=== PATIENT | male | born 1960 | race Two or more races ===

== ENCOUNTER 2018-04-10 07:36 | Emergency (ER) | payer MEDICAID ==
[~2018-04-10] VITALS: Ht 172.7 cm; Wt 111.1 kg
[2018-04-10 07:58] VITALS: BP 124/58
[2018-04-10] MEDS ORDERED: ALBUTEROL SULF 2.5 MG/0.5ML(0.5%) NEB SOLN NEB ONE (08:00)
[2018-04-10] MEDS ORDERED: IPRATROPIUM BROM 0.5 MG/2.5ML INH SOL NEB ONE (08:00)
[2018-04-10] MEDS ORDERED: SODIUM CHLORIDE 0.9% 1,000 ML IV ONE (08:38)
[2018-04-10] MEDS ORDERED: methylPREDNISolone SOD SUCC 125 MG/2 ML VL IV ONE (08:45)
[2018-04-10] MEDS ORDERED: AZITHROMYCIN 500MG/ 250ML 250 ML IV ONE (08:45)
[2018-04-10 09:05] LABS: Basophils # (auto) 0 uL; Basophils % (auto) 0.7 % (0.0-2.0); Eosinophils # (auto) 0.2 uL; Eosinophils % (auto) 3.3 % (0.0-7.0); Hemoglobin 13.6 g/dL (13.5-17.5); Lymphocytes % (auto) 16.6 % (10.0-50.0); Mean Corpuscular Hemoglobin 27.6 pg (28.0-32.0); Mean Corpuscular Hgb Conc. 33.1 g/dL (32.0-36.0); Mean Corpuscular Volume 83.4 fL (80.0-100.0); Monocytes # (auto) 0.4 uL; Monocytes % (auto) 6.4 % (0.0-12.0); Neutrophils # (auto) 4.3 uL; Platelet Count (auto) 248 10^3/uL (140-450); Red Blood Cells 4.92 10^6/uL (4.5-5.90); Red Cell Distribution Width 14.4 % (11.8-14.3); White Blood Cell 5.9 10^3/uL (4.4-10.8)
[2018-04-10 09:21] LABS: Albumin 3.1 g/dL (3.4-5.0); BUN/Creatinine Ratio 10.3; Calcium 8.6 mg/dL (8.5-10.1); Magnesium 2.1 mg/dL (1.6-2.6); Potassium 3.8 mmol/L (3.5-5.1)
[2018-04-10 09:24] LABS: Bilirubin, Total 0.3 mg/dL (0.2-1.0); Total Protein 6.3 g/dL (6.4-8.2)
== END 2018-04-10 10:31 | disposition home or self-care (01) ==
LOC: ER 07:36
DX: J45.901 Unspecified asthma with (acute) exacerbation (principal); E11.65 Type 2 diabetes mellitus with hyperglycemia; E44.1 Mild protein-calorie malnutrition; E78.5 Hyperlipidemia, unspecified; Z68.37 Body mass index [BMI] 37.0-37.9, adult
CPT/HCPCS: 36415; 71046; 80053; 83735; 84443; 85025; 93005; 94640; 94761; 96365; 96375; 99284; J0456; J2930; J7030; J7611; J7644

== ENCOUNTER 2019-05-13 17:40 | Emergency (ER) | payer MEDICAID ==
[~2019-05-13] VITALS: Ht 177.8 cm; Wt 97.5 kg
[2019-05-13] MEDS ORDERED: IPRATROPIUM BROM 0.5 MG/2.5ML INH SOL NEB ONE (18:15)
[2019-05-13] MEDS ORDERED: ALBUTEROL SULF 2.5 MG/0.5ML(0.5%) NEB SOLN NEB ONE (18:15)
[2019-05-13 18:27] LABS: Basophils # (auto) 0 uL; Basophils % (auto) 0.2 % (0.0-2.0); Eosinophils # (auto) 0 uL; Eosinophils % (auto) 0.1 % (0.0-7.0); Hematocrit 32.9 % (41.0-53.0); Hemoglobin 10.7 g/dL (13.5-17.5); Lymphocytes # (auto) 0.3 uL; Lymphocytes % (auto) 4.3 % (10.0-50.0); Mean Corpuscular Hemoglobin 27.4 pg (28.0-32.0); Mean Corpuscular Hgb Conc. 32.7 g/dL (32.0-36.0); Mean Corpuscular Volume 83.8 fL (80.0-100.0); Monocytes # (auto) 0.2 uL; Monocytes % (auto) 3.2 % (0.0-12.0); Neutrophils # (auto) 6.5 uL; Neutrophils % (auto) 92.2 % (37.0-80.0); Platelet Count (auto) 223 10^3/uL (140-450); Red Blood Cells 3.92 10^6/uL (4.5-5.90); Red Cell Distribution Width 13.9 % (11.8-14.3); White Blood Cell 7.1 10^3/uL (4.4-10.8)
[2019-05-13 18:42] LABS: Albumin 3.3 g/dL (3.4-5.0); Anion Gap 7 (5-15); Blood Urea Nitrogen 20 mg/dL (7-18); Calcium 8.1 mg/dL (8.5-10.1); Carbon Dioxide 24 mmol/L (21-32); Chloride 108 mmol/L (98-107); Potassium 5.3 mmol/L (3.5-5.1); Sodium 139 mmol/L (136-145)
[2019-05-13 18:47] LABS: Alanine Aminotransferase 143 U/L (16-61); Alkaline Phosphatase 103 U/L (45-117); Aspartate Aminotransferase 97 U/L (15-37); BUN/Creatinine Ratio 10.6; Bilirubin, Total 0.2 mg/dL (0.2-1.0); GFR African American 48 mL/min; GFR Non-African American 39 mL/min; Total Protein 6.5 g/dL (6.4-8.2)
[2019-05-13 18:51] LABS: Glucose 440 mg/dL (74-106)
[2019-05-13] MEDS ORDERED: methylPREDNISolone SOD SUCC 125 MG/2 ML VL IM ONE (19:45)
[2019-05-13 20:05] VITALS: BP 160/73
== END 2019-05-13 20:14 | disposition home or self-care (01) ==
LOC: ER 17:40
DX: J84.112 Idiopathic pulmonary fibrosis (principal); J20.9 Acute bronchitis, unspecified; J01.00 Acute maxillary sinusitis, unspecified; E11.65 Type 2 diabetes mellitus with hyperglycemia; N28.9 Disorder of kidney and ureter, unspecified; D63.1 Anemia in chronic kidney disease; R79.89 Other specified abnormal findings of blood chemistry; J44.9 Chronic obstructive pulmonary disease, unspecified; E78.00 Pure hypercholesterolemia, unspecified
CPT/HCPCS: 36415; 71046; 80053; 84484; 85025; 93005; 94640; 96372; 99284; J2930; J7611; J7644

== ENCOUNTER 2021-07-19 07:57 | Inpatient (IN) | payer MEDICAID ==
[~2021-07-19] VITALS: Ht 175.3 cm; Wt 95.6 kg
[2021-07-19 09:15] LABS: Albumin 3.6 g/dL (3.4-5.0); Calcium 9.2 mg/dL (8.5-10.1)
[2021-07-19 09:19] LABS: BUN/Creatinine Ratio 9.1; Bilirubin, Total 0.3 mg/dL (0.2-1.0); Eosinophils # (auto) 0.2 10 ^3/uL (0-0.8); Neutrophils # (auto) 5.7 10 ^3/uL (1.6-8.6); Red Cell Distribution Width 16.3 % (11.8-14.3); Total Protein 7.5 g/dL (6.4-8.2)
[2021-07-19 09:21] LABS: Basophils # (auto) 0.2 10 ^3/uL (0-0.2); Basophils % (auto) 2.2 % (0.0-2.0); Eosinophils % (auto) 2.2 % (0.0-7.0); Hematocrit 38.4 % (41.0-53.0); Hemoglobin 12.6 g/dL (13.5-17.5); Lymphocytes # (auto) 0.8 10 ^3/uL (0.4-5.4); Lymphocytes % (auto) 11.1 % (10.0-50.0); Mean Corpuscular Hgb Conc. 32.7 g/dL (32.0-36.0); Mean Corpuscular Volume 76.5 fL (80.0-100.0); Monocytes # (auto) 0.4 10 ^3/uL (0-1.3); Monocytes % (auto) 5.1 % (0.0-12.0); Neutrophils % (auto) 79.4 % (37.0-80.0); Red Blood Cells 5.01 10^6/uL (4.5-5.90); White Blood Cell 7.2 10^3/uL (4.4-10.8)
[2021-07-19] MEDS ORDERED: MORPHINE SULFATE INJECTION 2 MG/ML SYRG IV ONE (09:30)
[2021-07-19] MEDS ORDERED: METOCLOPRAMIDE HCL 5MG/ml INJ 2ml VIAL IV ONE (09:30)
[2021-07-19 09:50] LABS: Urine Bacteria NONE SEEN /hpf (None Seen); Urine Blood TRACE /uL (Negative); Urine Specific Gravity 1.008 (1.001-1.035); Urine WBC 1 /hpf (0 - 3)
[2021-07-19] MEDS ORDERED: methylPREDNISolone SOD SUCC 125 MG/2 ML VL IV ONE (10:45)
[2021-07-19] MEDS ORDERED: IPRATROPIUM BROM 0.5 MG/2.5ML INH SOL NEB ONE (10:45)
[2021-07-19] MEDS ORDERED: ALBUTEROL SULF 2.5 MG/0.5ML(0.5%) NEB SOLN NEB ONE (10:45)
[2021-07-19] MEDS ORDERED: HYDROmorphone HCL 2 MG/ML VL IV ONE (10:45)
[2021-07-19] MEDS ORDERED: SODIUM CHLORIDE 0.9% 1,000 ML IV ONE (11:00)
[2021-07-19] MEDS ORDERED: LABETALOL HCL 5 MG/ML 4ML SYRINGE IV ONE (11:00)
[2021-07-19] MEDS ORDERED: ONDANSETRON HCL 4 MG/2 ML VIAL IV PRN (11:30)
[2021-07-19] MEDS ORDERED: ACETAMINOPHEN 325 MG TAB PO PRN (11:30)
[2021-07-19] MEDS ORDERED: hydrALAZINE HCL 20 MG/ML VL IV PRN (11:30)
[2021-07-19] MEDS ORDERED: METOCLOPRAMIDE HCL 5MG/ml INJ 2ml VIAL IV PRN (11:30)
[2021-07-19 11:40] VITALS: BP 181/101
[2021-07-19] MEDS ORDERED: DEXTROSE (50%) 50ML SYRG IV PRN (11:45)
[2021-07-19] MEDS: SODIUM CHLORIDE 0.9% 1,000 ML IV SCH (11:52)
[2021-07-19] MEDS ORDERED: NITROGLYCERIN 0.4 MG SL TAB SL PRN (12:00)
[2021-07-19] MEDS ORDERED: MORPHINE SULFATE INJECTION 2 MG/ML SYRG IV PRN (12:00)
[2021-07-19] MEDS: FAMOTIDINE (10MG/ML) 2ML VL IV SCH (12:43)
[2021-07-19] MEDS: METOPROLOL TARTRATE 50 MG TAB PO SCH ×2 (12:43→21:34)
[2021-07-19 14:42] VITALS: BP 171/87
[2021-07-19 15:34] VITALS: BP 171/87
[2021-07-19] MEDS: MORPHINE SULFATE INJECTION 2 MG/ML SYRG IV PRN ×2 (16:11→21:36)
[2021-07-19] MEDS ORDERED: METF-372 PO (16:16)
[2021-07-19] MEDS ORDERED: INSU1INJ19 SC (16:16)
[2021-07-19] MEDS ORDERED: ALBU108A5 (16:16)
[2021-07-19] MEDS ORDERED: INSU100I61 (16:16)
[2021-07-19] MEDS ORDERED: FLU220IH PO (16:16)
[2021-07-19] MEDS ORDERED: LISI-275 PO (16:16)
[2021-07-19] MEDS ORDERED: INSUINJ18 (16:16)
[2021-07-19 17:00] VITALS: BP 156/84
[2021-07-19] MEDS: ACCU-CHEK COMFORT CURVE STRIP VI SCH ×2 (17:00→21:35)
[2021-07-19] MEDS: InsuLIN REG 1unit/0.01ml Soln (100units/ml) SC SCH ×2 (17:20→21:35)
[2021-07-19] MEDS ORDERED: TAMSULOSIN HYDROCHLORIDE 0.4 MG CAP PO SCH (18:00)
[2021-07-19] MEDS ORDERED: METOPROLOL TARTRATE 50 MG TAB PO ONE (18:30)
[2021-07-19 20:00] VITALS: BP 142/84
[2021-07-19 21:40] VITALS: BP 142/84
[2021-07-20] MEDS: SODIUM CHLORIDE 0.9% 1,000 ML IV SCH ×3 (04:22→20:35)
[2021-07-20] MEDS: IPRATROPIUM BROM 0.5 MG/2.5ML INH SOL NEB PRN ×2 (04:34→20:39)
[2021-07-20] MEDS: ALBUTEROL SULF 2.5 MG/0.5ML(0.5%) NEB SOLN NEB PRN ×2 (04:34→20:39)
[2021-07-20 04:55] VITALS: BP 122/66
[2021-07-20] MEDS: MORPHINE SULFATE INJECTION 2 MG/ML SYRG IV PRN ×2 (05:00→16:39)
[2021-07-20 05:57] LABS: Basophils # (auto) 0 10 ^3/uL (0-0.2); Basophils % (auto) 0.2 % (0.0-2.0); Eosinophils # (auto) 0 10 ^3/uL (0-0.8); Eosinophils % (auto) 0.1 % (0.0-7.0); Hemoglobin 11.1 g/dL (13.5-17.5); Mean Corpuscular Hemoglobin 25.1 pg (28.0-32.0); Monocytes # (auto) 0.4 10 ^3/uL (0-1.3); Neutrophils # (auto) 6.9 10 ^3/uL (1.6-8.6)
[2021-07-20 05:59] LABS: Hematocrit 33.4 % (41.0-53.0); Lymphocytes # (auto) 0.7 10 ^3/uL (0.4-5.4); Lymphocytes % (auto) 8.9 % (10.0-50.0); Mean Corpuscular Hgb Conc. 33.2 g/dL (32.0-36.0); Mean Corpuscular Volume 75.4 fL (80.0-100.0); Monocytes % (auto) 4.6 % (0.0-12.0); Neutrophils % (auto) 86.2 % (37.0-80.0); Red Blood Cells 4.43 10^6/uL (4.5-5.90); Red Cell Distribution Width 16.3 % (11.8-14.3)
[2021-07-20 06:14] LABS: Potassium 4.5 mmol/L (3.5-5.1)
[2021-07-20 06:22] LABS: Albumin 3.1 g/dL (3.4-5.0); Calcium 8.4 mg/dL (8.5-10.1)
[2021-07-20 06:24] LABS: Bilirubin, Total 0.3 mg/dL (0.2-1.0); Total Protein 6.4 g/dL (6.4-8.2)
[2021-07-20] MEDS: ACCU-CHEK COMFORT CURVE STRIP VI SCH ×4 (06:38→21:57)
[2021-07-20] MEDS: InsuLIN REG 1unit/0.01ml Soln (100units/ml) SC SCH ×5 (06:39→22:12)
[2021-07-20] MEDS ORDERED: FINASTERIDE 5 MG TAB PO ONE (07:15)
[2021-07-20 09:00] VITALS: BP 100/50
[2021-07-20] MEDS: METOPROLOL TARTRATE 50 MG TAB PO SCH ×2 (10:00→21:56)
[2021-07-20] MEDS: cefTRIAXone 1GM/50ML D5W 50 ML IV SCH (10:00)
[2021-07-20] MEDS: FAMOTIDINE (10MG/ML) 2ML VL IV SCH (10:00)
[2021-07-20 13:00] VITALS: BP 136/86
[2021-07-20] MEDS: HYDROcodone-ACET 5/325MG TAB PO PRN (14:12)
[2021-07-20] MEDS: DOCUSATE SOD 100 MG CAP PO PRN ×2 (14:13→21:58)
[2021-07-20 17:00] VITALS: BP 132/79
[2021-07-20] MEDS: TAMSULOSIN HYDROCHLORIDE 0.4 MG CAP PO SCH (18:21)
[2021-07-20 20:00] VITALS: BP 142/84
[2021-07-20 22:00] VITALS: BP 139/73
[2021-07-21] MEDS: MORPHINE SULFATE INJECTION 2 MG/ML SYRG IV PRN ×4 (01:45→20:44)
[2021-07-21] MEDS: SODIUM CHLORIDE 0.9% 1,000 ML IV SCH ×2 (04:07→09:31)
[2021-07-21 05:00] VITALS: BP 136/80
[2021-07-21] MEDS: ACCU-CHEK COMFORT CURVE STRIP VI SCH ×4 (06:26→22:14)
[2021-07-21] MEDS: InsuLIN REG 1unit/0.01ml Soln (100units/ml) SC SCH ×4 (06:33→22:40)
[2021-07-21 08:00] VITALS: BP 146/81
[2021-07-21 09:00] VITALS: BP 146/81
[2021-07-21] MEDS: cefTRIAXone 1GM/50ML D5W 50 ML IV SCH (09:27)
[2021-07-21] MEDS: FAMOTIDINE (10MG/ML) 2ML VL IV SCH (09:27)
[2021-07-21] MEDS: METOPROLOL TARTRATE 50 MG TAB PO SCH ×2 (09:31→22:00)
[2021-07-21] MEDS ORDERED: FUROSEMIDE 40 MG/4 ML VIAL IV ONE (10:30)
[2021-07-21] MEDS: HYDROcodone-ACET 5/325MG TAB PO PRN (12:09)
[2021-07-21] MEDS: ALBUTEROL SULF 2.5 MG/0.5ML(0.5%) NEB SOLN NEB PRN ×3 (12:40→23:52)
[2021-07-21] MEDS: IPRATROPIUM BROM 0.5 MG/2.5ML INH SOL NEB PRN ×3 (12:40→23:52)
[2021-07-21 13:00] VITALS: BP 125/71
[2021-07-21] MEDS ORDERED: LIDOCAINE 2% JELLY 11ml (GLYDO) UR ONE (13:30)
[2021-07-21 17:00] VITALS: BP 130/76
[2021-07-21] MEDS ORDERED: TOLTERODINE TARTRATE 1 MG TAB PO ONE (18:15)
[2021-07-21] MEDS: TAMSULOSIN HYDROCHLORIDE 0.4 MG CAP PO SCH (18:37)
[2021-07-21 22:00] VITALS: BP 139/81
[2021-07-21] MEDS: BELLADONNA ALKAL/OPIUM (16.2/30MG) RECT SUPP PR SCH (22:39)
[2021-07-22 05:00] VITALS: BP 131/62
[2021-07-22] MEDS: ACCU-CHEK COMFORT CURVE STRIP VI SCH (06:07)
[2021-07-22] MEDS: InsuLIN REG 1unit/0.01ml Soln (100units/ml) SC SCH (06:12)
[2021-07-22 06:28] LABS: Basophils # (auto) 0 10 ^3/uL (0-0.2); Eosinophils # (auto) 0.2 10 ^3/uL (0-0.8); Hematocrit 35.1 % (41.0-53.0); Hemoglobin 11.6 g/dL (13.5-17.5); Lymphocytes # (auto) 1.2 10 ^3/uL (0.4-5.4); Neutrophils # (auto) 4.3 10 ^3/uL (1.6-8.6); White Blood Cell 6.1 10^3/uL (4.4-10.8)
[2021-07-22 06:30] LABS: Basophils % (auto) 0.4 % (0.0-2.0); Mean Corpuscular Hemoglobin 25.2 pg (28.0-32.0); Mean Corpuscular Volume 76.5 fL (80.0-100.0); Monocytes # (auto) 0.3 10 ^3/uL (0-1.3); Monocytes % (auto) 5.6 % (0.0-12.0); Nucleated Red Blood Cells % 0.3 %; Red Blood Cells 4.59 10^6/uL (4.5-5.90); Red Cell Distribution Width 16.5 % (11.8-14.3)
[2021-07-22] MEDS: MORPHINE SULFATE INJECTION 2 MG/ML SYRG IV PRN (06:45)
[2021-07-22 06:57] LABS: Albumin 3.2 g/dL (3.4-5.0); Calcium 8.5 mg/dL (8.5-10.1); Potassium 4.4 mmol/L (3.5-5.1)
[2021-07-22 07:25] LABS: BUN/Creatinine Ratio 16.1
[2021-07-22 07:29] LABS: Bilirubin, Total 0.3 mg/dL (0.2-1.0); Total Protein 6.7 g/dL (6.4-8.2)
[2021-07-22] MEDS ORDERED: LIDOCAINE VISCOUS 2% 15ML UD ONE (08:19)
[2021-07-22 09:00] VITALS: BP 139/75
[2021-07-22] MEDS: cefTRIAXone 1GM/50ML D5W 50 ML IV SCH (09:00)
[2021-07-22] MEDS: IPRATROPIUM BROM 0.5 MG/2.5ML INH SOL NEB PRN (09:03)
[2021-07-22] MEDS: ALBUTEROL SULF 2.5 MG/0.5ML(0.5%) NEB SOLN NEB PRN (09:03)
[2021-07-22] MEDS: FAMOTIDINE (10MG/ML) 2ML VL IV SCH (09:51)
[2021-07-22] MEDS: BELLADONNA ALKAL/OPIUM (16.2/30MG) RECT SUPP PR SCH (09:52)
[2021-07-22] MEDS: METOPROLOL TARTRATE 50 MG TAB PO SCH (09:52)
[2021-07-22] MEDS ORDERED: FINASTERIDE 5 MG TAB PO SCH (10:00)
== END 2021-07-22 09:47 | disposition left against medical advice (07) | DRG 463 ==
LOC: ER 07:57 → OVERFLOW 11:59 → WEST WING 14:20 → TELE-WESTW 20:22
PROVIDERS: ADMIT Nurse Practitioner Family; ATTEND Internal Medicine
DX: N13.6 Pyonephrosis (principal); J96.01 Acute respiratory failure with hypoxia; N17.9 Acute kidney failure, unspecified; D64.9 Anemia, unspecified; E11.65 Type 2 diabetes mellitus with hyperglycemia; E11.22 Type 2 diabetes mellitus with diabetic chronic kidney disease; I16.1 Hypertensive emergency; J45.909 Unspecified asthma, uncomplicated; N40.0 Benign prostatic hyperplasia without lower urinary tract symptoms; I12.9 Hypertensive chronic kidney disease with stage 1 through stage 4 chronic kidney disease, or unspecified chronic kidney disease; N18.9 Chronic kidney disease, unspecified; Z53.29 Procedure and treatment not carried out because of patient's decision for other reasons; Z20.822 Contact with and (suspected) exposure to COVID-19
CPT/HCPCS: 36415; 71045; 74176; 78707; 80053; 81001; 82962; 83690; 84154; 85025; 93005; 94640; 96374; 96375; 99291; G0378; J0696; J1815; J2405; J3490

== ENCOUNTER 2021-07-23 17:02 | Inpatient (IN) | payer MEDICAID ==
[~2021-07-23] VITALS: Ht 172.7 cm; Wt 97.4 kg
[~2021-07-23 17:02] MED LIST: ALBU108A5; FLU220IH PO; INSU100I61; INSU1INJ19 SC; INSUINJ18; LISI-275 PO; METF-372 PO
[2021-07-23] MEDS ORDERED: KETOROLAC TROMETH 60MG/2ML VIAL IM ONE (19:00)
[2021-07-23 19:42] LABS: Basophils # (auto) 0 10 ^3/uL (0-0.2); Basophils % (auto) 0.5 % (0.0-2.0); Eosinophils # (auto) 0.1 10 ^3/uL (0-0.8); Monocytes # (auto) 0.6 10 ^3/uL (0-1.3); Monocytes % (auto) 7.8 % (0.0-12.0)
[2021-07-23 19:44] LABS: Eosinophils % (auto) 1.7 % (0.0-7.0); Hematocrit 39.4 % (41.0-53.0); Hemoglobin 13.3 g/dL (13.5-17.5); Lymphocytes % (auto) 13.1 % (10.0-50.0); Mean Corpuscular Hemoglobin 25.5 pg (28.0-32.0); Mean Corpuscular Hgb Conc. 33.7 g/dL (32.0-36.0); Mean Corpuscular Volume 75.7 fL (80.0-100.0); Neutrophils % (auto) 76.9 % (37.0-80.0); Red Blood Cells 5.21 10^6/uL (4.5-5.90); Red Cell Distribution Width 16.5 % (11.8-14.3); White Blood Cell 7.8 10^3/uL (4.4-10.8)
[2021-07-23 19:58] LABS: Lactic Acid w/Reflex 3.2 mmol/L (0.4-2.0)
[2021-07-23 19:59] LABS: Albumin 4.2 g/dL (3.4-5.0); Calcium 12.4 mg/dL (8.5-10.1); Potassium 4.2 mmol/L (3.5-5.1)
[2021-07-23 20:03] LABS: BUN/Creatinine Ratio 12.3; Bilirubin, Total 0.3 mg/dL (0.2-1.0); Total Protein 8.3 g/dL (6.4-8.2)
[2021-07-23] MEDS ORDERED: SODIUM CHLORIDE 0.9% 1,000 ML IV ONE (20:30)
[2021-07-23] MEDS ORDERED: MORPHINE SULFATE 4 MG/ML SYR/VIAL IV ONE (21:00)
[2021-07-24 03:42] LABS: Urine Bacteria NONE SEEN /hpf (None Seen); Urine Blood 2+ /uL (Negative); Urine Specific Gravity 1.008 (1.001-1.035); Urine WBC 2 /hpf (0 - 3)
[2021-07-24] MEDS ORDERED: HYDROmorphone HCL 2 MG/ML VL IV ONE (04:00)
[2021-07-24] MEDS ORDERED: SODIUM CHLORIDE 0.9% 1,000 ML IV ONE (04:00)
[2021-07-24] MEDS ORDERED: hydrALAZINE HCL 20 MG/ML VL IV ONE (07:45)
[2021-07-24] MEDS ORDERED: ALBUTEROL SULF 2.5 MG/0.5ML(0.5%) NEB SOLN NEB ONE ×2 (08:00→12:15)
[2021-07-24] MEDS ORDERED: NITROGLYCERIN 0.4 MG SL TAB SL PRN (10:30)
[2021-07-24] MEDS ORDERED: LABETALOL HCL 5 MG/ML 4ML SYRINGE IV PRN ×2 (10:30→12:15)
[2021-07-24] MEDS ORDERED: MORPHINE SULFATE INJECTION 2 MG/ML SYRG IV PRN (10:30)
[2021-07-24] MEDS ORDERED: DEXTROSE (50%) 50ML SYRG IV PRN (10:30)
[2021-07-24] MEDS ORDERED: hydrALAZINE HCL 20 MG/ML VL IV PRN (10:30)
[2021-07-24] MEDS: ACCU-CHEK COMFORT CURVE STRIP VI SCH ×3 (12:04→21:17)
[2021-07-24] MEDS: InsuLIN REG 1unit/0.01ml Soln (100units/ml) SC SCH ×3 (12:05→21:26)
[2021-07-24] MEDS ORDERED: HYDROcodone-ACET 5/325MG TAB PO ONE (12:15)
[2021-07-24] MEDS ORDERED: BENAZEPRIL HCL 10 MG TAB PO ONE (12:15)
[2021-07-24] MEDS: SODIUM CHLORIDE 0.9% 1,000 ML IV SCH (12:15)
[2021-07-24] MEDS ORDERED: LACTULOSE 20Gm/30ML SOLN PO PRN (12:15)
[2021-07-24] MEDS ORDERED: PANTOPRAZOLE 40 MG/10 ML VIAL INJ IV ONE (12:15)
[2021-07-24] MEDS ORDERED: MONTELUKAST SODIUM 10 MG TAB PO ONE (12:15)
[2021-07-24] MEDS ORDERED: SUCRALFATE 1 GM/10 ML ORAL SUSP PO ONE (12:15)
[2021-07-24] MEDS ORDERED: ACETAMINOPHEN 325 MG TAB PO PRN (12:15)
[2021-07-24] MEDS ORDERED: DOCUSATE SOD 100 MG CAP PO PRN (12:15)
[2021-07-24] MEDS ORDERED: IPRATROPIUM BROM 0.5 MG/2.5ML INH SOL NEB ONE (12:15)
[2021-07-24] MEDS ORDERED: NIFEdipine ER 30 MG TAB PO ONE (12:15)
[2021-07-24] MEDS ORDERED: FOLIC ACID 1 MG TAB PO ONE (12:15)
[2021-07-24] MEDS ORDERED: MEROPENEM 1GM IVPB 100 ML IV ONE (12:30)
[2021-07-24] MEDS ORDERED: ZOLEDRONIC ACID 4 MG in SODIUM CHL 0.9% 100 ML IV ONE (12:30)
[2021-07-24] MEDS: MORPHINE SULFATE INJECTION 2 MG/ML SYRG IV PRN ×4 (12:47→23:00)
[2021-07-24 13:04] VITALS: BP 197/84
[2021-07-24] MEDS: HYDROcodone-ACET 5/325MG TAB PO PRN ×2 (13:30→21:18)
[2021-07-24] MEDS: IPRATROPIUM BROM 0.5 MG/2.5ML INH SOL NEB SCH ×3 (13:39→22:09)
[2021-07-24] MEDS ORDERED: TAMS0.4C36 PO (14:46)
[2021-07-24 16:59] VITALS: BP 157/72
[2021-07-24] MEDS ORDERED: SUCRALFATE 1 GM/10 ML ORAL SUSP PO SCH (17:00)
[2021-07-24 17:17] VITALS: BP 157/72
[2021-07-24] MEDS: TAMSULOSIN HYDROCHLORIDE 0.4 MG CAP PO SCH (17:20)
[2021-07-24 17:45] LABS: Phosphorus 2.9 mg/dL (2.5-4.90)
[2021-07-24 17:52] LABS: INR 1.07 (0.9-1.15); Partial Thromboplastin Time 26.8 sec (23.6-33.0)
[2021-07-24] MEDS ORDERED: TAMSULOSIN HYDROCHLORIDE 0.4 MG CAP PO SCH (18:00)
[2021-07-24] MEDS: ALBUTEROL SULF 2.5 MG/0.5ML(0.5%) NEB SOLN NEB PRN ×2 (18:35→22:09)
[2021-07-24] MEDS ORDERED: cefTRIAXone 1GM/50ML D5W 50 ML IV ONE (20:00)
[2021-07-24] MEDS: ATORVASTATIN 20 MG TAB PO SCH (21:17)
[2021-07-24] MEDS: MONTELUKAST SODIUM 10 MG TAB PO SCH (21:17)
[2021-07-24] MEDS: LORazepam 0.5 MG TAB PO PRN (21:18)
[2021-07-24 22:00] VITALS: BP 120/65
[2021-07-24] MEDS ORDERED: MEROPENEM 1GM IVPB 100 ML IV SCH (22:00)
[2021-07-25] MEDS: IPRATROPIUM BROM 0.5 MG/2.5ML INH SOL NEB SCH ×6 (01:58→21:59)
[2021-07-25] MEDS: SODIUM CHLORIDE 0.9% 1,000 ML IV SCH ×4 (04:55→21:52)
[2021-07-25 05:00] VITALS: BP 128/55
[2021-07-25] MEDS: MORPHINE SULFATE INJECTION 2 MG/ML SYRG IV PRN ×2 (05:56→15:40)
[2021-07-25 06:42] LABS: INR 1.08 (0.9-1.15); Partial Thromboplastin Time 26.8 sec (23.6-33.0)
[2021-07-25 06:51] LABS: Hematocrit 32.3 % (41.0-53.0); Hemoglobin 11.2 g/dL (13.5-17.5); Mean Corpuscular Hemoglobin 26.1 pg (28.0-32.0); Mean Corpuscular Hgb Conc. 34.7 g/dL (32.0-36.0); Mean Corpuscular Volume 75.2 fL (80.0-100.0); Red Blood Cells 4.29 10^6/uL (4.5-5.90); Red Cell Distribution Width 16.4 % (11.8-14.3); White Blood Cell 8.1 10^3/uL (4.4-10.8)
[2021-07-25] MEDS: ACCU-CHEK COMFORT CURVE STRIP VI SCH ×4 (06:51→21:52)
[2021-07-25 06:57] LABS: Calcium 8.7 mg/dL (8.5-10.1); Phosphorus 1.9 mg/dL (2.5-4.90)
[2021-07-25 06:59] LABS: Band Neutrophils % (manual) 0; Basophils % (manual) 0 (0.0-2.0); Blast Cells 0; Eosinophils % (manual) 0 (0-7); Metamyelocytes % 0; Myelocytes % 0; Promyelocytes % 0; Reactive Lymphocytes 0
[2021-07-25] MEDS: InsuLIN REG 1unit/0.01ml Soln (100units/ml) SC SCH ×4 (07:00→22:24)
[2021-07-25 07:05] LABS: BUN/Creatinine Ratio 14.8; Bilirubin, Total 0.4 mg/dL (0.2-1.0); CRP High Sensitivity 3.01 mg/dL (< 0.3); Total Protein 6.1 g/dL (6.4-8.2); Uric Acid 7.1 mg/dL (3.5-7.2)
[2021-07-25 07:10] LABS: Thyroid Stimulating Hormone 0.78 uIU/mL (0.358-3.74)
[2021-07-25 07:45] LABS: Lymphocytes % (manual) 1 (10.0-50.0); Monocytes % (manual) 4 (0-12)
[2021-07-25 09:17] VITALS: BP 100/50
[2021-07-25] MEDS: ASPirin 81 mg TAB PO SCH (09:21)
[2021-07-25] MEDS: cefTRIAXone 1GM/50ML D5W 50 ML IV SCH (09:21)
[2021-07-25] MEDS: THIAMINE HCL 100 MG TAB PO SCH (09:22)
[2021-07-25] MEDS: FOLIC ACID 1 MG TAB PO SCH (09:22)
[2021-07-25] MEDS: CHOLECALCIFEROL (VITD3) 2,000 UNIT CAP/TAB PO SCH (09:23)
[2021-07-25] MEDS: CYANOCOBALAMIN 500 MCG TAB PO SCH (09:23)
[2021-07-25] MEDS: HYDROcodone-ACET 5/325MG TAB PO PRN (09:58)
[2021-07-25] MEDS ORDERED: PANTOPRAZOLE 40 MG/10 ML VIAL INJ IV SCH (10:00)
[2021-07-25] MEDS ORDERED: NIFEdipine ER 30 MG TAB PO SCH (10:00)
[2021-07-25] MEDS ORDERED: BENAZEPRIL HCL 10 MG TAB PO SCH (10:00)
[2021-07-25] MEDS ORDERED: ENOXAPARIN SOD 40 MG/0.4 ML SYRINGE SC SCH (10:00)
[2021-07-25 12:44] LABS: Alcohol, Urine < 3.0 mg/dL (0-10); Amphetamine Screen, Urine NEGATIVE (NEGATIVE); Barbiturate Scree,Urine NEGATIVE (NEGATIVE); Benzodiazephine Screen, Urine NEGATIVE (NEGATIVE); Cannabinoid Screen, Urine NEGATIVE (NEGATIVE); Cocaine Screen, Urine NEGATIVE (NEGATIVE); Opiate Scree,Urine NEGATIVE (NEGATIVE); Phencyclidine Screen, Urine NEGATIVE (NEGATIVE)
[2021-07-25 13:00] VITALS: BP 100/46
[2021-07-25 17:00] VITALS: BP 109/58
[2021-07-25] MEDS: INSULIN NPH Isophane (HUMAN) 1unit/0.01ml Susp(100units/ml) SC SCH (18:00)
[2021-07-25] MEDS: TAMSULOSIN HYDROCHLORIDE 0.4 MG CAP PO SCH (18:01)
[2021-07-25] MEDS: NICOTINE 21MG/24 HR TOPICAL PATCH TD SCH (18:06)
[2021-07-25] MEDS: ALBUTEROL SULF 2.5 MG/0.5ML(0.5%) NEB SOLN NEB PRN ×2 (18:28→21:59)
[2021-07-25 20:00] VITALS: BP 107/46
[2021-07-25] MEDS: MONTELUKAST SODIUM 10 MG TAB PO SCH (21:51)
[2021-07-25] MEDS: ATORVASTATIN 20 MG TAB PO SCH (21:52)
[2021-07-25 22:00] VITALS: BP 103/75
[2021-07-26] VITALS (9 sets, daily range): BP systolic 88–130; BP diastolic 34–81
[2021-07-26] MEDS: ALBUTEROL SULF 2.5 MG/0.5ML(0.5%) NEB SOLN NEB PRN ×2 (02:33→19:07)
[2021-07-26] MEDS: IPRATROPIUM BROM 0.5 MG/2.5ML INH SOL NEB SCH ×6 (02:33→22:07)
[2021-07-26] MEDS: SODIUM CHLORIDE 0.9% 1,000 ML IV SCH ×5 (03:15→22:40)
[2021-07-26] MEDS: HYDROcodone-ACET 5/325MG TAB PO PRN ×2 (05:22→15:13)
[2021-07-26] MEDS: HEPARIN SODIUM (PORCINE) 5000 UNITS/ML 1ML VIAL SC SCH ×3 (06:07→21:46)
[2021-07-26 06:27] LABS: Basophils # (auto) 0 10 ^3/uL (0-0.2); Basophils % (auto) 0.2 % (0.0-2.0); Eosinophils # (auto) 0 10 ^3/uL (0-0.8); Eosinophils % (auto) 0.1 % (0.0-7.0); Hemoglobin 10.7 g/dL (13.5-17.5); Lymphocytes # (auto) 0.3 10 ^3/uL (0.4-5.4); Lymphocytes % (auto) 4.5 % (10.0-50.0); Mean Corpuscular Hemoglobin 25.3 pg (28.0-32.0); Mean Corpuscular Hgb Conc. 33.6 g/dL (32.0-36.0); Mean Corpuscular Volume 75.5 fL (80.0-100.0); Monocytes # (auto) 0.1 10 ^3/uL (0-1.3); Monocytes % (auto) 1.8 % (0.0-12.0); Neutrophils % (auto) 93.4 % (37.0-80.0); Red Blood Cells 4.24 10^6/uL (4.5-5.90); White Blood Cell 6.5 10^3/uL (4.4-10.8)
[2021-07-26 06:34] LABS: Calcium 8.6 mg/dL (8.5-10.1); Magnesium 1.9 mg/dL (1.6-2.6)
[2021-07-26] MEDS: INSULIN NPH Isophane (HUMAN) 1unit/0.01ml Susp(100units/ml) SC SCH ×2 (06:35→18:00)
[2021-07-26 06:37] LABS: BUN/Creatinine Ratio 12.9
[2021-07-26] MEDS: MORPHINE SULFATE INJECTION 2 MG/ML SYRG IV PRN ×2 (06:45→16:41)
[2021-07-26] MEDS: InsuLIN REG 1unit/0.01ml Soln (100units/ml) SC SCH ×4 (06:48→22:04)
[2021-07-26] MEDS: ACCU-CHEK COMFORT CURVE STRIP VI SCH ×4 (06:49→21:46)
[2021-07-26] MEDS ORDERED: SODIUM CHLORIDE 0.9% 2,000 ML IV ONE (09:00)
[2021-07-26] MEDS: NICOTINE 21MG/24 HR TOPICAL PATCH TD SCH (10:00)
[2021-07-26] MEDS ORDERED: ENOXAPARIN SOD 30 MG/0.3 ML SYRINGE SC SCH (10:00)
[2021-07-26] MEDS ORDERED: LIDOCAINE 2% JELLY 11ml (GLYDO) UR ONE (10:00)
[2021-07-26] MEDS: CYANOCOBALAMIN 500 MCG TAB PO SCH (10:00)
[2021-07-26] MEDS: cefTRIAXone 1GM/50ML D5W 50 ML IV SCH (10:29)
[2021-07-26] MEDS: THIAMINE HCL 100 MG TAB PO SCH (10:51)
[2021-07-26] MEDS: CHOLECALCIFEROL (VITD3) 2,000 UNIT CAP/TAB PO SCH (10:51)
[2021-07-26] MEDS: ASPirin 81 mg TAB PO SCH (10:52)
[2021-07-26] MEDS: FOLIC ACID 1 MG TAB PO SCH (10:52)
[2021-07-26] MEDS ORDERED: MORPHINE SULFATE INJECTION 2 MG/ML SYRG IV ONE (11:00)
[2021-07-26] MEDS: LORazepam 0.5 MG TAB PO PRN (14:03)
[2021-07-26] MEDS: HYDROmorphone HCL 2 MG/ML VL IV PRN ×2 (18:53→21:45)
[2021-07-26] MEDS: TAMSULOSIN HYDROCHLORIDE 0.4 MG CAP PO SCH (18:55)
[2021-07-26] MEDS: MONTELUKAST SODIUM 10 MG TAB PO SCH (21:44)
[2021-07-26] MEDS: ATORVASTATIN 20 MG TAB PO SCH (21:44)
[2021-07-27] MEDS: HYDROmorphone HCL 2 MG/ML VL IV PRN ×4 (01:14→19:49)
[2021-07-27] MEDS: IPRATROPIUM BROM 0.5 MG/2.5ML INH SOL NEB SCH ×6 (02:00→22:21)
[2021-07-27] MEDS: ONDANSETRON HCL 4 MG/2 ML VIAL IV PRN ×2 (03:37→08:31)
[2021-07-27] MEDS: ALBUTEROL SULF 2.5 MG/0.5ML(0.5%) NEB SOLN NEB PRN ×4 (04:43→22:21)
[2021-07-27 05:14] VITALS: BP 132/77
[2021-07-27] MEDS: ACCU-CHEK COMFORT CURVE STRIP VI SCH ×4 (06:20→22:26)
[2021-07-27] MEDS: HEPARIN SODIUM (PORCINE) 5000 UNITS/ML 1ML VIAL SC SCH ×3 (06:26→22:19)
[2021-07-27] MEDS: InsuLIN REG 1unit/0.01ml Soln (100units/ml) SC SCH ×4 (06:27→22:20)
[2021-07-27] MEDS: INSULIN NPH Isophane (HUMAN) 1unit/0.01ml Susp(100units/ml) SC SCH ×2 (06:28→18:00)
[2021-07-27] MEDS: SODIUM CHLORIDE 0.9% 1,000 ML IV SCH ×3 (06:37→20:01)
[2021-07-27 07:54] LABS: Basophils # (auto) 0 10 ^3/uL (0-0.2); Basophils % (auto) 0.2 % (0.0-2.0); Eosinophils # (auto) 0 10 ^3/uL (0-0.8); Lymphocytes # (auto) 0.3 10 ^3/uL (0.4-5.4); Mean Corpuscular Hemoglobin 25.2 pg (28.0-32.0)
[2021-07-27 07:56] LABS: Eosinophils % (auto) 0.9 % (0.0-7.0); Hematocrit 29.7 % (41.0-53.0); Hemoglobin 9.9 g/dL (13.5-17.5); Lymphocytes % (auto) 5.8 % (10.0-50.0); Mean Corpuscular Hgb Conc. 33.4 g/dL (32.0-36.0); Mean Corpuscular Volume 75.3 fL (80.0-100.0); Monocytes # (auto) 0.2 10 ^3/uL (0-1.3); Monocytes % (auto) 3.2 % (0.0-12.0); Neutrophils # (auto) 4.3 10 ^3/uL (1.6-8.6); Neutrophils % (auto) 89.9 % (37.0-80.0); Red Blood Cells 3.95 10^6/uL (4.5-5.90); Red Cell Distribution Width 16.4 % (11.8-14.3); White Blood Cell 4.7 10^3/uL (4.4-10.8)
[2021-07-27 08:00] VITALS: BP 144/79
[2021-07-27] MEDS: NICOTINE 21MG/24 HR TOPICAL PATCH TD SCH (08:02)
[2021-07-27 08:08] LABS: BUN/Creatinine Ratio 15.2; Calcium 7.9 mg/dL (8.5-10.1); Magnesium 2.3 mg/dL (1.6-2.6); Potassium 3.9 mmol/L (3.5-5.1)
[2021-07-27] MEDS ORDERED: ACETAMINOPHEN 325 MG TAB PO PRN (08:15)
[2021-07-27] MEDS: CYANOCOBALAMIN 500 MCG TAB PO SCH (10:00)
[2021-07-27] MEDS: ASPirin 81 mg TAB PO SCH (10:06)
[2021-07-27] MEDS: FOLIC ACID 1 MG TAB PO SCH (10:06)
[2021-07-27] MEDS: THIAMINE HCL 100 MG TAB PO SCH (10:06)
[2021-07-27] MEDS: CHOLECALCIFEROL (VITD3) 2,000 UNIT CAP/TAB PO SCH (10:07)
[2021-07-27] MEDS: FAMOTIDINE 20 MG TAB PO SCH (10:07)
[2021-07-27] MEDS: cefTRIAXone 1GM/50ML D5W 50 ML IV SCH (10:07)
[2021-07-27] MEDS: HYDROcodone-ACET 5/325MG TAB PO PRN (11:27)
[2021-07-27 14:26] VITALS: BP 109/58
[2021-07-27 17:12] VITALS: BP 144/62
[2021-07-27] MEDS: TAMSULOSIN HYDROCHLORIDE 0.4 MG CAP PO SCH (18:51)
[2021-07-27 22:00] VITALS: BP 134/73
[2021-07-27] MEDS: MONTELUKAST SODIUM 10 MG TAB PO SCH (22:28)
[2021-07-27 22:29] VITALS: BP 130/76
[2021-07-27] MEDS: ATORVASTATIN 20 MG TAB PO SCH (22:29)
[2021-07-28] MEDS: HYDROmorphone HCL 2 MG/ML VL IV PRN ×4 (00:10→21:46)
[2021-07-28] MEDS ORDERED: diphenhdrAMINE HCL 25 MG CAP PO ONE (00:15)
[2021-07-28] MEDS: IPRATROPIUM BROM 0.5 MG/2.5ML INH SOL NEB SCH ×6 (02:00→22:00)
[2021-07-28] MEDS: HYDROcodone-ACET 5/325MG TAB PO PRN ×3 (02:51→20:13)
[2021-07-28 05:00] VITALS: BP 116/59
[2021-07-28] MEDS: SODIUM CHLORIDE 0.9% 1,000 ML IV SCH ×3 (05:00→23:12)
[2021-07-28 06:39] LABS: Basophils # (auto) 0 10 ^3/uL (0-0.2); Eosinophils # (auto) 0.1 10 ^3/uL (0-0.8); Lymphocytes # (auto) 0.4 10 ^3/uL (0.4-5.4); Monocytes # (auto) 0.2 10 ^3/uL (0-1.3); Neutrophils # (auto) 2.5 10 ^3/uL (1.6-8.6); Neutrophils % (auto) 78.3 % (37.0-80.0); Nucleated Red Blood Cells % 0.1 %
[2021-07-28] MEDS: HEPARIN SODIUM (PORCINE) 5000 UNITS/ML 1ML VIAL SC SCH ×3 (06:40→21:35)
[2021-07-28 06:41] LABS: Basophils % (auto) 0.5 % (0.0-2.0); Eosinophils % (auto) 3.3 % (0.0-7.0); Hematocrit 26.5 % (41.0-53.0); Hemoglobin 9.1 g/dL (13.5-17.5); Lymphocytes % (auto) 11.5 % (10.0-50.0); Mean Corpuscular Hemoglobin 25.8 pg (28.0-32.0); Mean Corpuscular Hgb Conc. 34.4 g/dL (32.0-36.0); Monocytes % (auto) 6.4 % (0.0-12.0); Red Blood Cells 3.53 10^6/uL (4.5-5.90); Red Cell Distribution Width 16.9 % (11.8-14.3); White Blood Cell 3.1 10^3/uL (4.4-10.8)
[2021-07-28] MEDS: ACCU-CHEK COMFORT CURVE STRIP VI SCH ×4 (06:41→21:31)
[2021-07-28] MEDS: InsuLIN REG 1unit/0.01ml Soln (100units/ml) SC SCH ×4 (06:41→21:37)
[2021-07-28] MEDS: INSULIN NPH Isophane (HUMAN) 1unit/0.01ml Susp(100units/ml) SC SCH ×2 (06:42→17:45)
[2021-07-28] MEDS: ALBUTEROL SULF 2.5 MG/0.5ML(0.5%) NEB SOLN NEB PRN ×4 (06:48→19:08)
[2021-07-28 07:01] LABS: BUN/Creatinine Ratio 11.9; Calcium 8.1 mg/dL (8.5-10.1); Magnesium 2.3 mg/dL (1.6-2.6); Potassium 3.6 mmol/L (3.5-5.1)
[2021-07-28] MEDS: NICOTINE 21MG/24 HR TOPICAL PATCH TD SCH (08:20)
[2021-07-28 09:00] VITALS: BP 131/71
[2021-07-28] MEDS: cefTRIAXone 1GM/50ML D5W 50 ML IV SCH (09:09)
[2021-07-28] MEDS: THIAMINE HCL 100 MG TAB PO SCH (09:09)
[2021-07-28] MEDS: FOLIC ACID 1 MG TAB PO SCH (09:09)
[2021-07-28] MEDS: CYANOCOBALAMIN 500 MCG TAB PO SCH (09:09)
[2021-07-28] MEDS: CHOLECALCIFEROL (VITD3) 2,000 UNIT CAP/TAB PO SCH (09:09)
[2021-07-28] MEDS: ASPirin 81 mg TAB PO SCH (09:09)
[2021-07-28] MEDS: FAMOTIDINE 20 MG TAB PO SCH (09:09)
[2021-07-28 13:00] VITALS: BP 149/86
[2021-07-28 17:00] VITALS: BP 122/80
[2021-07-28 17:21] LABS: Protein, Urine 83.5 mg/dL (0.0-11.9)
[2021-07-28] MEDS: TAMSULOSIN HYDROCHLORIDE 0.4 MG CAP PO SCH (17:45)
[2021-07-28] MEDS: ATORVASTATIN 20 MG TAB PO SCH (21:32)
[2021-07-28] MEDS: MONTELUKAST SODIUM 10 MG TAB PO SCH (21:35)
[2021-07-28 21:55] VITALS: BP 124/75
[2021-07-29] MEDS ORDERED: diphenhdrAMINE HCL 25 MG CAP PO ONE (00:45)
[2021-07-29] MEDS: IPRATROPIUM BROM 0.5 MG/2.5ML INH SOL NEB SCH ×7 (02:00→22:00)
[2021-07-29] MEDS: ALBUTEROL SULF 2.5 MG/0.5ML(0.5%) NEB SOLN NEB PRN ×6 (02:35→18:01)
[2021-07-29] MEDS: MORPHINE SULFATE INJECTION 2 MG/ML SYRG IV PRN ×5 (02:51→23:21)
[2021-07-29] MEDS: HEPARIN SODIUM (PORCINE) 5000 UNITS/ML 1ML VIAL SC SCH (05:04)
[2021-07-29 05:17] VITALS: BP 142/73
[2021-07-29] MEDS: ACCU-CHEK COMFORT CURVE STRIP VI SCH ×4 (06:20→22:59)
[2021-07-29] MEDS: INSULIN NPH Isophane (HUMAN) 1unit/0.01ml Susp(100units/ml) SC SCH ×2 (06:58→17:44)
[2021-07-29] MEDS: InsuLIN REG 1unit/0.01ml Soln (100units/ml) SC SCH ×4 (06:59→22:56)
[2021-07-29] MEDS: NICOTINE 21MG/24 HR TOPICAL PATCH TD SCH (07:41)
[2021-07-29] MEDS: cefTRIAXone 1GM/50ML D5W 50 ML IV SCH (07:57)
[2021-07-29 08:00] VITALS: BP 90/50
[2021-07-29 09:00] VITALS: BP 158/78
[2021-07-29] MEDS: ASPirin 81 mg TAB PO SCH (09:20)
[2021-07-29] MEDS: CHOLECALCIFEROL (VITD3) 2,000 UNIT CAP/TAB PO SCH (09:21)
[2021-07-29] MEDS: FOLIC ACID 1 MG TAB PO SCH (09:21)
[2021-07-29] MEDS: FAMOTIDINE 20 MG TAB PO SCH (09:21)
[2021-07-29] MEDS: CYANOCOBALAMIN 500 MCG TAB PO SCH (09:21)
[2021-07-29] MEDS: THIAMINE HCL 100 MG TAB PO SCH (09:21)
[2021-07-29] MEDS: SODIUM CHLORIDE 0.9% 1,000 ML IV SCH ×2 (10:51→13:42)
[2021-07-29 13:00] VITALS: BP 143/62
[2021-07-29] MEDS ORDERED: LEVO500T31 PO (13:08)
[2021-07-29 17:00] VITALS: BP 155/68
[2021-07-29] MEDS: TAMSULOSIN HYDROCHLORIDE 0.4 MG CAP PO SCH (17:43)
[2021-07-29 22:00] VITALS: BP 144/74
[2021-07-29] MEDS: ATORVASTATIN 20 MG TAB PO SCH (22:25)
[2021-07-30] MEDS: IPRATROPIUM BROM 0.5 MG/2.5ML INH SOL NEB SCH ×7 (02:00→22:00)
[2021-07-30] MEDS: MORPHINE SULFATE INJECTION 2 MG/ML SYRG IV PRN ×4 (04:10→20:39)
[2021-07-30 05:00] VITALS: BP 124/67
[2021-07-30] MEDS: SODIUM CHLORIDE 0.9% 1,000 ML IV SCH ×2 (05:29→22:50)
[2021-07-30 06:04] LABS: Hematocrit 26.1 % (41.0-53.0); Hemoglobin 8.9 g/dL (13.5-17.5)
[2021-07-30] MEDS: INSULIN NPH Isophane (HUMAN) 1unit/0.01ml Susp(100units/ml) SC SCH ×2 (06:13→17:42)
[2021-07-30] MEDS: InsuLIN REG 1unit/0.01ml Soln (100units/ml) SC SCH ×4 (06:17→20:41)
[2021-07-30] MEDS: ACCU-CHEK COMFORT CURVE STRIP VI SCH ×4 (06:17→22:00)
[2021-07-30 06:36] LABS: BUN/Creatinine Ratio 14.6; Potassium 3.9 mmol/L (3.5-5.1)
[2021-07-30 09:00] VITALS: BP 149/66
[2021-07-30] MEDS: CHOLECALCIFEROL (VITD3) 2,000 UNIT CAP/TAB PO SCH (09:13)
[2021-07-30] MEDS: cefTRIAXone 1GM/50ML D5W 50 ML IV SCH (09:13)
[2021-07-30] MEDS: FAMOTIDINE 20 MG TAB PO SCH (09:14)
[2021-07-30] MEDS: ONDANSETRON HCL 4 MG/2 ML VIAL IV PRN ×2 (09:14→14:30)
[2021-07-30 13:00] VITALS: BP 138/65
[2021-07-30 14:46] LABS: % Iron Saturation 8.2 % (20-55)
[2021-07-30 17:00] VITALS: BP 157/74
[2021-07-30] MEDS: TAMSULOSIN HYDROCHLORIDE 0.4 MG CAP PO SCH (17:39)
[2021-07-30] MEDS: HYDROcodone-ACET 5/325MG TAB PO PRN ×2 (17:40→23:53)
[2021-07-30] MEDS: ALBUTEROL SULF 2.5 MG/0.5ML(0.5%) NEB SOLN NEB PRN (19:07)
[2021-07-30 20:00] VITALS: BP 90/50
[2021-07-30 22:00] VITALS: BP 144/71
[2021-07-30] MEDS: ATORVASTATIN 20 MG TAB PO SCH (23:52)
[2021-07-30] MEDS: LORazepam 0.5 MG TAB PO PRN (23:55)
[2021-07-31 01:28] VITALS: BP 144/71
[2021-07-31] MEDS: IPRATROPIUM BROM 0.5 MG/2.5ML INH SOL NEB SCH ×4 (02:00→14:35)
[2021-07-31] MEDS: MORPHINE SULFATE INJECTION 2 MG/ML SYRG IV PRN (02:03)
[2021-07-31 05:00] VITALS: BP 119/71
[2021-07-31] MEDS: InsuLIN REG 1unit/0.01ml Soln (100units/ml) SC SCH ×2 (05:04→12:05)
[2021-07-31] MEDS: INSULIN NPH Isophane (HUMAN) 1unit/0.01ml Susp(100units/ml) SC SCH ×2 (05:05→12:06)
[2021-07-31] MEDS: HYDROcodone-ACET 5/325MG TAB PO PRN ×2 (05:15→14:56)
[2021-07-31] MEDS: ALBUTEROL SULF 2.5 MG/0.5ML(0.5%) NEB SOLN NEB PRN ×2 (06:10→14:35)
[2021-07-31] MEDS: ACCU-CHEK COMFORT CURVE STRIP VI SCH ×2 (06:32→11:30)
[2021-07-31] MEDS: ONDANSETRON HCL 4 MG/2 ML VIAL IV PRN (06:42)
[2021-07-31 06:44] LABS: Hematocrit 27.3 % (41.0-53.0); Hemoglobin 9.1 g/dL (13.5-17.5)
[2021-07-31 07:05] LABS: Potassium 3.5 mmol/L (3.5-5.1)
[2021-07-31 07:14] LABS: Calcium 9.4 mg/dL (8.5-10.1)
[2021-07-31 09:00] VITALS: BP 118/71
[2021-07-31] MEDS: cefTRIAXone 1GM/50ML D5W 50 ML IV SCH (09:00)
[2021-07-31] MEDS: FAMOTIDINE 20 MG TAB PO SCH (11:24)
[2021-07-31] MEDS: CHOLECALCIFEROL (VITD3) 2,000 UNIT CAP/TAB PO SCH (11:24)
[2021-07-31 13:00] VITALS: BP 134/76
[2021-07-31] MEDS ORDERED: OXYBUTYNIN CHL 5 MG TAB PO SCH (14:00)
[2021-07-31] MEDS ORDERED: CHOL20007 PO (15:02)
[2021-07-31 16:29] VITALS: BP 134/76
[2021-07-31 17:00] VITALS: BP 108/62
[2021-08-01] MEDS ORDERED: BELLADONNA ALKAL/OPIUM (16.2/30MG) RECT SUPP PR SCH (10:00)
== END 2021-07-31 18:12 | disposition home health service (06) | DRG 720 ==
LOC: ER 17:02 → TELE 07-24 10:18 → TELE-WESTW 07-24 12:17
PROVIDERS: ADMIT Hospitalist; ATTEND Internal Medicine
DX: A41.9 Sepsis, unspecified organism (principal); N17.0 Acute kidney failure with tubular necrosis; I21.4 Non-ST elevation (NSTEMI) myocardial infarction; E87.1 Hypo-osmolality and hyponatremia; D63.1 Anemia in chronic kidney disease; N13.6 Pyonephrosis; E11.22 Type 2 diabetes mellitus with diabetic chronic kidney disease; E11.40 Type 2 diabetes mellitus with diabetic neuropathy, unspecified; I16.1 Hypertensive emergency; N32.0 Bladder-neck obstruction; E11.65 Type 2 diabetes mellitus with hyperglycemia; E21.0 Primary hyperparathyroidism; Z20.822 Contact with and (suspected) exposure to COVID-19; E66.01 Morbid (severe) obesity due to excess calories; E78.5 Hyperlipidemia, unspecified; N18.32 Chronic kidney disease, stage 3b; E55.9 Vitamin D deficiency, unspecified; E78.00 Pure hypercholesterolemia, unspecified; F17.200 Nicotine dependence, unspecified, uncomplicated; I12.9 Hypertensive chronic kidney disease with stage 1 through stage 4 chronic kidney disease, or unspecified chronic kidney disease; J44.9 Chronic obstructive pulmonary disease, unspecified; K43.9 Ventral hernia without obstruction or gangrene; K80.20 Calculus of gallbladder without cholecystitis without obstruction; N32.89 Other specified disorders of bladder; R33.8 Other retention of urine; N40.1 Benign prostatic hyperplasia with lower urinary tract symptoms; Z79.51 Long term (current) use of inhaled steroids; Z87.11 Personal history of peptic ulcer disease; Z68.33 Body mass index [BMI] 33.0-33.9, adult; Z53.29 Procedure and treatment not carried out because of patient's decision for other reasons
CPT/HCPCS: 36415; 71045; 74176; 76705; 76775; 80048; 80053; 80061; 80307; 81001; 82306; 82550; 82570; 82728; 82962; 83036; 83540; 83550; 83605; 83615; 83690; 83735; 83880; 83970; 84100; 84156; 84300; 84443; 84484; 84550; 85007; 85014; 85018; 85025; 85027; 85379; 85610; 85652; 85730; 86141; 87040; 87081; 87086; 93005; 93306; 94640; 96361; 96372; 96374; 96375; C9113; G0378; J0696; J1815; J1885; J2185; J2405; J3489

== ENCOUNTER 2021-08-04 00:11 | Emergency (ER) | payer MEDICAID ==
[~2021-08-04] VITALS: Ht 188 cm; Wt 81.6 kg
[~2021-08-04 00:11] MED LIST changes: +CHOL20007 PO; +LEVO500T31 PO; +TAMS0.4C36 PO
[2021-08-04 00:30] VITALS: BP 136/76
== END 2021-08-04 01:02 | disposition left against medical advice (07) ==
LOC: EDUNIT# 00:11 → EDBD 00:11 → ER 00:14
DX: R42 Dizziness and giddiness (principal); Z53.21 Procedure and treatment not carried out due to patient leaving prior to being seen by health care provider
CPT/HCPCS: 93005

== ENCOUNTER 2021-08-05 23:33 | Inpatient (IN) | payer MEDICAID ==
[~2021-08-05] VITALS: Ht 172.7 cm; Wt 99.5 kg
[2021-08-06 00:18] LABS: Basophils # (auto) 0 10 ^3/uL (0-0.2); Eosinophils # (auto) 0 10 ^3/uL (0-0.8); Eosinophils % (auto) 0.4 % (0.0-7.0); Hemoglobin 8.9 g/dL (13.5-17.5); Lymphocytes # (auto) 0.5 10 ^3/uL (0.4-5.4); Mean Corpuscular Hemoglobin 24.5 pg (28.0-32.0); Mean Corpuscular Hgb Conc. 32.8 g/dL (32.0-36.0); Monocytes # (auto) 0.5 10 ^3/uL (0-1.3); Nucleated Red Blood Cells % 0.1 %; White Blood Cell 10.2 10^3/uL (4.4-10.8)
[2021-08-06] MEDS ORDERED: IOHEXOL 300 MG/ML 100ML BOTTLE IJ ONE (00:18)
[2021-08-06 00:20] LABS: Basophils % (auto) 0.3 % (0.0-2.0); Hematocrit 27.1 % (41.0-53.0); Lymphocytes % (auto) 4.7 % (10.0-50.0); Mean Corpuscular Volume 74.7 fL (80.0-100.0); Monocytes % (auto) 4.9 % (0.0-12.0); Neutrophils # (auto) 9.2 10 ^3/uL (1.6-8.6); Neutrophils % (auto) 89.7 % (37.0-80.0); Red Blood Cells 3.63 10^6/uL (4.5-5.90); Red Cell Distribution Width 16.4 % (11.8-14.3)
[2021-08-06 00:22] LABS: Albumin 2.4 g/dL (3.4-5.0); Calcium 7.9 mg/dL (8.5-10.1)
[2021-08-06 00:27] LABS: Bilirubin, Total 0.2 mg/dL (0.2-1.0)
[2021-08-06 00:29] LABS: Potassium 1.7 mmol/L (3.5-5.1)
[2021-08-06] MEDS ORDERED: HYDROmorphone HCL 2 MG/ML VL IV ONE ×2 (02:15→04:30)
[2021-08-06] MEDS ORDERED: ONDANSETRON HCL 4 MG/2 ML VIAL IV ONE (02:15)
[2021-08-06] MEDS ORDERED: SODIUM CHLORIDE 0.9% 500 ML IV ONE (04:15)
[2021-08-06] MEDS ORDERED: ASPirin 81 mg TAB PO ONE (04:15)
[2021-08-06] MEDS ORDERED: POTASSIUM CHL 20 Meq TABLET PO ONE (04:15)
[2021-08-06] MEDS ORDERED: cefTRIAXone 1GM/50ML D5W 50 ML IV ONE (04:15)
[2021-08-06] MEDS: POTASSIUM CHL 20MEQ/100ML 100 ML IV SCH ×6 (04:43→22:32)
[2021-08-06] MEDS ORDERED: NITROGLYCERIN 0.4 MG SL TAB SL PRN (05:15)
[2021-08-06] MEDS ORDERED: SODIUM CHLORIDE 0.9% 1,000 ML IV ONE (05:15)
[2021-08-06] MEDS ORDERED: ONDANSETRON HCL 4 MG/2 ML VIAL IV PRN (05:15)
[2021-08-06] MEDS ORDERED: ACETAMINOPHEN 325 MG TAB PO PRN (05:15)
[2021-08-06] MEDS ORDERED: MORPHINE SULFATE INJECTION 2 MG/ML SYRG IV PRN (05:15)
[2021-08-06] MEDS ORDERED: hydrALAZINE HCL 10 MG TAB PO PRN (05:15)
[2021-08-06 05:57] LABS: Urine Bacteria NONE SEEN /hpf (None Seen); Urine Blood 1+ /uL (Negative); Urine Specific Gravity 1.017 (1.001-1.035); Urine WBC 1 /hpf (0 - 3)
[2021-08-06] MEDS ORDERED: levoFLOXacin 500MG 100 ML IV ONE (06:00)
[2021-08-06 07:22] LABS: Albumin 2.1 g/dL (3.4-5.0); BUN/Creatinine Ratio 5.5; Calcium 6.9 mg/dL (8.5-10.1); Magnesium 2.1 mg/dL (1.6-2.6)
[2021-08-06 07:27] LABS: Bilirubin, Total 0.2 mg/dL (0.2-1.0); Total Protein 5.3 g/dL (6.4-8.2)
[2021-08-06 07:48] LABS: Potassium 2.1 mmol/L (3.5-5.1)
[2021-08-06] MEDS ORDERED: HEPARIN DRIP/D5W 100UNITS/ML 250 ML IV SCH (08:45)
[2021-08-06] MEDS ORDERED: HEPARIN SODIUM (PORCINE) 5000 UNITS/ML 1ML VIAL IV ONE (08:45)
[2021-08-06] MEDS ORDERED: DEXTROSE (50%) 50ML SYRG IV PRN (09:00)
[2021-08-06] MEDS ORDERED: LORazepam 2MG/ML-1ML VIAL IV ONE (09:30)
[2021-08-06] MEDS ORDERED: FAMOTIDINE 20 MG TAB PO SCH (10:00)
[2021-08-06 10:02] LABS: Basophils # (auto) 0 10 ^3/uL (0-0.2); Basophils % (auto) 0.5 % (0.0-2.0); Eosinophils # (auto) 0.1 10 ^3/uL (0-0.8); Eosinophils % (auto) 1.4 % (0.0-7.0); Hematocrit 22.6 % (41.0-53.0); Hemoglobin 7.6 g/dL (13.5-17.5); Lymphocytes # (auto) 0.5 10 ^3/uL (0.4-5.4); Lymphocytes % (auto) 7.7 % (10.0-50.0); Mean Corpuscular Hemoglobin 25.1 pg (28.0-32.0); Mean Corpuscular Hgb Conc. 33.7 g/dL (32.0-36.0); Mean Corpuscular Volume 74.6 fL (80.0-100.0); Monocytes # (auto) 0.3 10 ^3/uL (0-1.3); Monocytes % (auto) 5.8 % (0.0-12.0); Neutrophils # (auto) 5.1 10 ^3/uL (1.6-8.6); Neutrophils % (auto) 84.6 % (37.0-80.0); Red Blood Cells 3.02 10^6/uL (4.5-5.90); Red Cell Distribution Width 16.6 % (11.8-14.3)
[2021-08-06 10:16] LABS: INR 1.16 (0.9-1.15); Partial Thromboplastin Time 29.1 sec (23.6-33.0)
[2021-08-06 10:27] LABS: Albumin 2.1 g/dL (3.4-5.0); BUN/Creatinine Ratio 5.7; Calcium 6.9 mg/dL (8.5-10.1)
[2021-08-06 10:31] LABS: Bilirubin, Total 0.2 mg/dL (0.2-1.0); Total Protein 5.4 g/dL (6.4-8.2)
[2021-08-06 10:36] LABS: Potassium 2.2 mmol/L (3.5-5.1)
[2021-08-06] MEDS: InsuLIN REG 1unit/0.01ml Soln (100units/ml) SC SCH ×3 (11:30→22:42)
[2021-08-06] MEDS: ASPirin-EC 81 mg tab PO SCH (11:54)
[2021-08-06] MEDS: ACCU-CHEK COMFORT CURVE STRIP VI SCH ×3 (12:00→22:33)
[2021-08-06 13:00] VITALS: BP 118/66
[2021-08-06] MEDS: metroNIDAZOLE 500 MG TAB PO SCH ×2 (13:41→22:32)
[2021-08-06] MEDS: POTASSIUM CHL 20 Meq TABLET PO SCH ×2 (13:41→22:33)
[2021-08-06] MEDS: LACTATED RINGER'S 1,000 ML IV SCH (13:41)
[2021-08-06 15:44] LABS: Albumin 2.2 g/dL (3.4-5.0); BUN/Creatinine Ratio 5.3; Calcium 7.2 mg/dL (8.5-10.1)
[2021-08-06 15:47] LABS: Bilirubin, Total 0.2 mg/dL (0.2-1.0); Total Protein 5.6 g/dL (6.4-8.2)
[2021-08-06 15:53] LABS: Potassium 2.3 mmol/L (3.5-5.1)
[2021-08-06] MEDS: SUCRALFATE 1 GM/10 ML ORAL SUSP PO SCH ×2 (16:36→22:32)
[2021-08-06] MEDS: MORPHINE SULFATE INJECTION 2 MG/ML SYRG IV PRN ×2 (16:36→22:44)
[2021-08-06 17:00] VITALS: BP 124/73
[2021-08-06 18:28] LABS: Albumin 2.2 g/dL (3.4-5.0); BUN/Creatinine Ratio 5.7; Calcium 7.2 mg/dL (8.5-10.1)
[2021-08-06 18:30] VITALS: BP 124/73
[2021-08-06 18:39] LABS: Bilirubin, Total 0.2 mg/dL (0.2-1.0); Total Protein 5.6 g/dL (6.4-8.2)
[2021-08-06 18:48] LABS: Potassium 2.9 mmol/L (3.5-5.1)
[2021-08-06] MEDS: HYDROcodone-ACET 5/325MG TAB PO PRN (19:53)
[2021-08-06] MEDS: ALBUTEROL SULF 2.5 MG/0.5ML(0.5%) NEB SOLN NEB SCH (19:55)
[2021-08-06 20:00] VITALS: BP 121/70
[2021-08-06 22:00] VITALS: BP 121/70
[2021-08-06] MEDS: PANTOPRAZOLE 40 MG TAB PO SCH (22:33)
[2021-08-06] MEDS: ATORVASTATIN 20 MG TAB PO SCH (22:33)
[2021-08-06 22:34] LABS: Albumin 2.3 g/dL (3.4-5.0); Calcium 7.5 mg/dL (8.5-10.1)
[2021-08-06 22:37] LABS: BUN/Creatinine Ratio 5.7; Bilirubin, Total 0.2 mg/dL (0.2-1.0); Total Protein 5.7 g/dL (6.4-8.2)
[2021-08-06 22:40] LABS: Potassium 2.8 mmol/L (3.5-5.1)
[2021-08-07] MEDS: POTASSIUM CHL 20MEQ/100ML 100 ML IV SCH (00:40)
[2021-08-07 02:15] LABS: Albumin 2.2 g/dL (3.4-5.0); BUN/Creatinine Ratio 5.4; Calcium 7.5 mg/dL (8.5-10.1)
[2021-08-07 02:18] LABS: Bilirubin, Total 0.2 mg/dL (0.2-1.0); Total Protein 5.4 g/dL (6.4-8.2)
[2021-08-07] MEDS: LACTATED RINGER'S 1,000 ML IV SCH ×3 (02:51→17:35)
[2021-08-07] MEDS: ALBUTEROL SULF 2.5 MG/0.5ML(0.5%) NEB SOLN NEB SCH ×4 (03:03→18:07)
[2021-08-07 05:00] VITALS: BP 132/77
[2021-08-07] MEDS: metroNIDAZOLE 500 MG TAB PO SCH ×3 (05:48→22:17)
[2021-08-07] MEDS: ACCU-CHEK COMFORT CURVE STRIP VI SCH ×4 (06:39→22:18)
[2021-08-07] MEDS: SUCRALFATE 1 GM/10 ML ORAL SUSP PO SCH ×4 (06:39→22:17)
[2021-08-07] MEDS: InsuLIN REG 1unit/0.01ml Soln (100units/ml) SC SCH ×4 (06:44→22:41)
[2021-08-07 07:13] LABS: Basophils # (auto) 0 10 ^3/uL (0-0.2); Eosinophils # (auto) 0.1 10 ^3/uL (0-0.8); Monocytes # (auto) 0.3 10 ^3/uL (0-1.3)
[2021-08-07 07:14] LABS: Basophils % (auto) 0.6 % (0.0-2.0); Hematocrit 22.1 % (41.0-53.0); Hemoglobin 7.3 g/dL (13.5-17.5); Lymphocytes # (auto) 0.4 10 ^3/uL (0.4-5.4); Lymphocytes % (auto) 5.9 % (10.0-50.0); Mean Corpuscular Hgb Conc. 33.2 g/dL (32.0-36.0); Monocytes % (auto) 4.5 % (0.0-12.0); Neutrophils # (auto) 5.5 10 ^3/uL (1.6-8.6); Red Blood Cells 2.93 10^6/uL (4.5-5.90); Red Cell Distribution Width 16.9 % (11.8-14.3); White Blood Cell 6.3 10^3/uL (4.4-10.8)
[2021-08-07 07:18] LABS: Mean Corpuscular Volume 75.4 fL (80.0-100.0)
[2021-08-07 07:28] LABS: Albumin 2.2 g/dL (3.4-5.0); Calcium 7.7 mg/dL (8.5-10.1); Potassium 3.1 mmol/L (3.5-5.1)
[2021-08-07 07:31] LABS: BUN/Creatinine Ratio 5.3; Bilirubin, Total 0.3 mg/dL (0.2-1.0); Total Protein 5.8 g/dL (6.4-8.2)
[2021-08-07 08:00] VITALS: BP 121/70
[2021-08-07 08:39] VITALS: BP 127/69
[2021-08-07] MEDS: ASPirin-EC 81 mg tab PO SCH (09:36)
[2021-08-07] MEDS: levoFLOXacin 500 MG TAB PO SCH (09:36)
[2021-08-07] MEDS: POTASSIUM CHL 20 Meq TABLET PO SCH ×2 (09:37→22:18)
[2021-08-07] MEDS: PANTOPRAZOLE 40 MG TAB PO SCH ×2 (09:37→22:18)
[2021-08-07] MEDS: MORPHINE SULFATE INJECTION 2 MG/ML SYRG IV PRN ×2 (09:38→15:45)
[2021-08-07] MEDS ORDERED: levoFLOXacin 250MG 50 ML IV SCH (10:00)
[2021-08-07 11:40] LABS: Albumin 2.3 g/dL (3.4-5.0); Potassium 3.4 mmol/L (3.5-5.1)
[2021-08-07 11:43] LABS: BUN/Creatinine Ratio 5.3; Bilirubin, Total 0.3 mg/dL (0.2-1.0); Total Protein 6.1 g/dL (6.4-8.2)
[2021-08-07 12:40] VITALS: BP 112/58
[2021-08-07 16:18] LABS: Albumin 2.3 g/dL (3.4-5.0); Potassium 3.2 mmol/L (3.5-5.1)
[2021-08-07 16:22] LABS: BUN/Creatinine Ratio 5.4; Bilirubin, Total 0.2 mg/dL (0.2-1.0); Total Protein 6.2 g/dL (6.4-8.2)
[2021-08-07 17:00] VITALS: BP 126/74
[2021-08-07] MEDS: HYDROcodone-ACET 5/325MG TAB PO PRN (18:24)
[2021-08-07 19:38] LABS: Albumin 2.3 g/dL (3.4-5.0); BUN/Creatinine Ratio 5.5; Calcium 8.2 mg/dL (8.5-10.1); Potassium 3.4 mmol/L (3.5-5.1)
[2021-08-07 19:41] LABS: Bilirubin, Total 0.2 mg/dL (0.2-1.0); Total Protein 5.8 g/dL (6.4-8.2)
[2021-08-07] MEDS ORDERED: POTASSIUM CHL 20MEQ/100ML 100 ML IV ONE (20:45)
[2021-08-07] MEDS ORDERED: HYDROcodone-ACET 10/325MG TAB PO PRN (21:00)
[2021-08-07 22:00] VITALS: BP 126/71
[2021-08-07] MEDS: ATORVASTATIN 20 MG TAB PO SCH (22:18)
[2021-08-07 23:37] LABS: Albumin 2.4 g/dL (3.4-5.0); Calcium 8.4 mg/dL (8.5-10.1); Potassium 3.5 mmol/L (3.5-5.1)
[2021-08-07 23:40] LABS: Bilirubin, Total 0.2 mg/dL (0.2-1.0); Total Protein 6.1 g/dL (6.4-8.2)
[2021-08-08] MEDS: MORPHINE SULFATE INJECTION 2 MG/ML SYRG IV PRN ×2 (01:28→11:21)
[2021-08-08 03:09] LABS: Albumin 2.3 g/dL (3.4-5.0); Potassium 3.5 mmol/L (3.5-5.1)
[2021-08-08 03:11] LABS: BUN/Creatinine Ratio 6.1
[2021-08-08 03:14] LABS: Bilirubin, Total 0.3 mg/dL (0.2-1.0); Total Protein 5.9 g/dL (6.4-8.2)
[2021-08-08] MEDS: LACTATED RINGER'S 1,000 ML IV SCH (04:45)
[2021-08-08 05:00] VITALS: BP 128/63
[2021-08-08] MEDS: InsuLIN REG 1unit/0.01ml Soln (100units/ml) SC SCH ×3 (05:51→16:53)
[2021-08-08] MEDS: metroNIDAZOLE 500 MG TAB PO SCH ×2 (06:32→13:55)
[2021-08-08] MEDS: SUCRALFATE 1 GM/10 ML ORAL SUSP PO SCH ×3 (06:32→16:47)
[2021-08-08] MEDS: ALBUTEROL SULF 2.5 MG/0.5ML(0.5%) NEB SOLN NEB SCH ×3 (06:39→18:45)
[2021-08-08 07:55] VITALS: BP 121/70
[2021-08-08] MEDS: ACCU-CHEK COMFORT CURVE STRIP VI SCH ×3 (08:28→16:47)
[2021-08-08 08:40] VITALS: BP 137/68
[2021-08-08] MEDS: PANTOPRAZOLE 40 MG TAB PO SCH (09:04)
[2021-08-08] MEDS: ASPirin-EC 81 mg tab PO SCH (09:04)
[2021-08-08] MEDS: POTASSIUM CHL 20 Meq TABLET PO SCH (09:05)
[2021-08-08] MEDS: levoFLOXacin 500 MG TAB PO SCH (09:05)
[2021-08-08 09:13] LABS: Basophils # (auto) 0 10 ^3/uL (0-0.2); Eosinophils # (auto) 0.1 10 ^3/uL (0-0.8); Eosinophils % (auto) 2.7 % (0.0-7.0); Lymphocytes # (auto) 0.5 10 ^3/uL (0.4-5.4); Mean Corpuscular Hemoglobin 24.8 pg (28.0-32.0); Monocytes # (auto) 0.3 10 ^3/uL (0-1.3); Neutrophils # (auto) 3.9 10 ^3/uL (1.6-8.6); Red Cell Distribution Width 17.1 % (11.8-14.3)
[2021-08-08 09:15] LABS: Basophils % (auto) 0.9 % (0.0-2.0); Hematocrit 24.6 % (41.0-53.0); Lymphocytes % (auto) 10.3 % (10.0-50.0); Mean Corpuscular Hgb Conc. 32.6 g/dL (32.0-36.0); Mean Corpuscular Volume 75.9 fL (80.0-100.0); Monocytes % (auto) 6.7 % (0.0-12.0); Neutrophils % (auto) 79.4 % (37.0-80.0); Nucleated Red Blood Cells % 0.1 %; Red Blood Cells 3.24 10^6/uL (4.5-5.90)
[2021-08-08 09:30] LABS: Albumin 2.5 g/dL (3.4-5.0); Calcium 8.2 mg/dL (8.5-10.1); Potassium 3.8 mmol/L (3.5-5.1)
[2021-08-08 09:34] LABS: BUN/Creatinine Ratio 6.1; Bilirubin, Total 0.4 mg/dL (0.2-1.0); Total Protein 6.3 g/dL (6.4-8.2)
[2021-08-08] MEDS ORDERED: DOCUSATE SOD 100 MG CAP PO PRN (11:30)
[2021-08-08 12:50] VITALS: BP 122/71
[2021-08-08 13:39] LABS: Albumin 2.4 g/dL (3.4-5.0); BUN/Creatinine Ratio 8.1; Calcium 8.3 mg/dL (8.5-10.1); Potassium 4.1 mmol/L (3.5-5.1)
[2021-08-08 13:42] LABS: Bilirubin, Total 0.2 mg/dL (0.2-1.0); Total Protein 6.1 g/dL (6.4-8.2)
[2021-08-08] MEDS ORDERED: SODIUM CHLORIDE 0.9% 1,000 ML IV SCH (14:45)
[2021-08-08 16:50] VITALS: BP 141/73
[2021-08-08 18:15] LABS: Albumin 2.3 g/dL (3.4-5.0); BUN/Creatinine Ratio 8.6; Calcium 8.1 mg/dL (8.5-10.1); Potassium 3.9 mmol/L (3.5-5.1)
[2021-08-08 18:18] LABS: Bilirubin, Total 0.2 mg/dL (0.2-1.0); Total Protein 5.9 g/dL (6.4-8.2)
[2021-08-08] MEDS ORDERED: ASPI-543 PO (18:56)
[2021-08-08] MEDS ORDERED: LEVO-28 PO (18:56)
[2021-08-08] MEDS ORDERED: PANT40T PO (18:56)
[2021-08-08] MEDS ORDERED: POTA-220 PO (18:56)
[2021-08-08] MEDS ORDERED: ATOR20TA50 PO (18:56)
[2021-08-08] MEDS ORDERED: SUCR1SUS10 PO (18:56)
[2021-08-08] MEDS ORDERED: MET500T PO (18:56)
[2021-08-08 21:33] VITALS: BP 159/67
== END 2021-08-08 20:55 | disposition home health service (06) | DRG 190 ==
LOC: ER 23:33 → TELE 08-06 05:04 → TELE-WESTW 08-06 09:52
PROVIDERS: ADMIT Nurse Practitioner Family; ATTEND Nurse Practitioner Family
DX: I21.4 Non-ST elevation (NSTEMI) myocardial infarction (principal); N17.9 Acute kidney failure, unspecified; D63.1 Anemia in chronic kidney disease; E11.42 Type 2 diabetes mellitus with diabetic polyneuropathy; E11.22 Type 2 diabetes mellitus with diabetic chronic kidney disease; J44.1 Chronic obstructive pulmonary disease with (acute) exacerbation; E87.8 Other disorders of electrolyte and fluid balance, not elsewhere classified; E11.65 Type 2 diabetes mellitus with hyperglycemia; E87.6 Hypokalemia; K46.9 Unspecified abdominal hernia without obstruction or gangrene; N18.30 Chronic kidney disease, stage 3 unspecified; K43.9 Ventral hernia without obstruction or gangrene; K29.80 Duodenitis without bleeding; N13.9 Obstructive and reflux uropathy, unspecified; N32.89 Other specified disorders of bladder; N32.0 Bladder-neck obstruction; K43.2 Incisional hernia without obstruction or gangrene; K80.20 Calculus of gallbladder without cholecystitis without obstruction; E66.01 Morbid (severe) obesity due to excess calories; E78.5 Hyperlipidemia, unspecified; F17.200 Nicotine dependence, unspecified, uncomplicated; I12.9 Hypertensive chronic kidney disease with stage 1 through stage 4 chronic kidney disease, or unspecified chronic kidney disease; I25.10 Atherosclerotic heart disease of native coronary artery without angina pectoris; N18.32 Chronic kidney disease, stage 3b; N40.1 Benign prostatic hyperplasia with lower urinary tract symptoms; Z68.30 Body mass index [BMI] 30.0-30.9, adult; Z79.51 Long term (current) use of inhaled steroids; Z79.84 Long term (current) use of oral hypoglycemic drugs; Z83.3 Family history of diabetes mellitus; Z87.11 Personal history of peptic ulcer disease; Z87.442 Personal history of urinary calculi
CPT/HCPCS: 36415; 70450; 70551; 71045; 71260; 74177; 76775; 80053; 81001; 82306; 82962; 83735; 83880; 83970; 84100; 84132; 84484; 85025; 85610; 85730; 86850; 86900; 86901; 87086; 93005; 94640; 95819; 96365; 96367; 96375; 96376; 99291; G0378; J0696; J1815; J1956; J2405; J3480

== ENCOUNTER 2021-10-03 06:25 | Inpatient (IN) | payer MEDICAID ==
[~2021-10-03] VITALS: Ht 177.8 cm; Wt 95.3 kg
[~2021-10-03 06:25] MED LIST changes: +ASPI-543 PO; +ATOR20TA50 PO; -CHOL20007 PO; -INSUINJ18; +LEVO-28 PO; -LEVO500T31 PO; -LISI-275 PO; +MET500T PO; +PANT40T PO; +POTA-220 PO; +SUCR1SUS10 PO
[2021-10-03] MEDS ORDERED: fentaNYL CITRATE 100 MCG/2 ML VL IV ONE ×2 (06:45→07:45)
[2021-10-03 08:29] LABS: Basophils # (auto) 0 10 ^3/uL (0-0.2); Hemoglobin 7.7 g/dL (13.5-17.5); Lymphocytes # (auto) 0.6 10 ^3/uL (0.4-5.4); Monocytes # (auto) 0.3 10 ^3/uL (0-1.3); Neutrophils # (auto) 4.1 10 ^3/uL (1.6-8.6); Nucleated Red Blood Cells % 0.1 %
[2021-10-03 08:30] LABS: Basophils % (auto) 0.6 % (0.0-2.0); Eosinophils # (auto) 0.1 10 ^3/uL (0-0.8); Eosinophils % (auto) 1.1 % (0.0-7.0); Hematocrit 24.5 % (41.0-53.0); Mean Corpuscular Hemoglobin 21.5 pg (28.0-32.0); Mean Corpuscular Hgb Conc. 31.5 g/dL (32.0-36.0); Mean Corpuscular Volume 68.1 fL (80.0-100.0); Monocytes % (auto) 5.4 % (0.0-12.0); Neutrophils % (auto) 81.9 % (37.0-80.0); Red Cell Distribution Width 17.9 % (11.8-14.3)
[2021-10-03 08:45] LABS: Albumin 2.8 g/dL (3.4-5.0); BUN/Creatinine Ratio 9.9; Calcium 7.2 mg/dL (8.5-10.1); Potassium 3.2 mmol/L (3.5-5.1)
[2021-10-03 08:52] LABS: Bilirubin, Total 0.2 mg/dL (0.2-1.0); Total Protein 6.4 g/dL (6.4-8.2)
[2021-10-03] MEDS ORDERED: SODIUM CHLORIDE 0.9% 1,000 ML IV ONE ×3 (09:00→12:45)
[2021-10-03] MEDS ORDERED: HYDROmorphone HCL 2 MG/ML VL/or syr IV ONE ×2 (09:00→12:45)
[2021-10-03] MEDS ORDERED: cefTRIAXone 1GM/50ML D5W 50 ML IV ONE (09:45)
[2021-10-03 11:35] LABS: Urine Bacteria NONE SEEN /hpf (None Seen); Urine Blood Negative /uL (Negative); Urine WBC <1 /hpf (0 - 3)
[2021-10-03] MEDS ORDERED: ONDANSETRON HCL 4 MG/2 ML VIAL IV PRN (13:00)
[2021-10-03] MEDS ORDERED: ACETAMINOPHEN 325 MG TAB PO PRN (13:00)
[2021-10-03] MEDS ORDERED: HYDROcodone-ACET 5/325MG TAB PO PRN ×2 (13:00)
[2021-10-03] MEDS ORDERED: MORPHINE SULFATE INJ 2 MG/ml SYRG IV PRN ×2 (13:00)
[2021-10-03] MEDS ORDERED: NITROGLYCERIN 0.4 MG SL TAB SL PRN (13:00)
[2021-10-03] MEDS: POTASSIUM CHL 20MEQ/100ML 100 ML IV SCH ×2 (14:41→14:45)
[2021-10-03] MEDS: PANTOPRAZOLE 40 MG/10 ML VIAL INJ IV SCH (14:42)
[2021-10-03] MEDS: metroNIDAZOLE 500MG/100ML 100 ML IV SCH (14:42)
[2021-10-03] MEDS: hydrALAZINE HCL 20 MG/ML VL IV PRN (15:13)
[2021-10-03] MEDS: levoFLOXacin 500MG 100 ML IV SCH (17:14)
[2021-10-03] MEDS: MORPHINE SULFATE INJ 2 MG/ml SYRG IV PRN ×2 (17:49→21:35)
[2021-10-03] MEDS ORDERED: SUCRALFATE 1 GM/10 ML ORAL SUSP PO SCH (18:00)
[2021-10-03] MEDS ORDERED: hydrALAZINE HCL 20 MG/ML VL IV ONE (18:45)
[2021-10-03] MEDS ORDERED: MORPHINE SULFATE 4 MG/ML SYR/VIAL ONE (21:33)
[2021-10-03 21:47] LABS: % Iron Saturation 3.2 % (20-55)
[2021-10-03 21:58] LABS: Folate (Folic Acid) 7.49 ng/mL (5.38-24)
[2021-10-04] MEDS ORDERED: HYDROmorphone HCL 2 MG/ML VL/or syr IV ONE
[2021-10-04] MEDS: metroNIDAZOLE 500MG/100ML 100 ML IV SCH ×3 (00:10→14:00)
[2021-10-04] MEDS: MORPHINE SULFATE INJ 2 MG/ml SYRG IV PRN ×5 (02:21→18:42)
[2021-10-04] MEDS ORDERED: ALBUTEROL SULF HFA 90MCG INH 200DOSE IN PRN (03:30)
[2021-10-04] MEDS ORDERED: ALBUTEROL SULF 2.5 MG/0.5ML(0.5%) NEB SOLN NEB PRN (03:45)
[2021-10-04 05:00] VITALS: BP 170/71
[2021-10-04] MEDS: hydrALAZINE HCL 20 MG/ML VL IV PRN ×2 (05:35→11:50)
[2021-10-04 08:49] VITALS: BP 162/77
[2021-10-04] MEDS: levoFLOXacin 500MG 100 ML IV SCH (10:44)
[2021-10-04] MEDS: PANTOPRAZOLE 40 MG/10 ML VIAL INJ IV SCH (10:44)
[2021-10-04 12:00] VITALS: BP 193/99
[2021-10-04] MEDS ORDERED: DOCU100C10 PO (12:57)
[2021-10-04] MEDS ORDERED: HYDR1TAB97 PO (12:57)
[2021-10-04] MEDS ORDERED: FER325T PO (12:57)
[2021-10-04] MEDS ORDERED: SODIUM CHLORIDE 0.9% 1,000 ML IV ONE (13:00)
[2021-10-04] MEDS ORDERED: SODIUM CHLORIDE 0.9% 1,000 ML IV SCH (13:00)
[2021-10-04] MEDS ORDERED: TEMAZEPAM 15 MG CAP PO PRN (15:45)
[2021-10-04 17:30] VITALS: BP 192/93
[2021-10-04] MEDS ORDERED: FERROUS SULFATE 325mg EC TAB PO SCH (18:00)
[2021-10-04 18:09] VITALS: BP 178/78
[2021-10-04 18:42] VITALS: BP 149/78
[2021-10-04] MEDS ORDERED: DOCUSATE SOD 100 MG CAP PO SCH (22:00)
== END 2021-10-04 19:30 | disposition home or self-care (01) ==
LOC: ER 06:25 → TELE 12:58 → TELE-WESTW 22:59
PROVIDERS: ADMIT Internal Medicine; ATTEND Internal Medicine
DX: K80.20 Calculus of gallbladder without cholecystitis without obstruction (principal); E11.22 Type 2 diabetes mellitus with diabetic chronic kidney disease; E83.51 Hypocalcemia; D63.8 Anemia in other chronic diseases classified elsewhere; D50.9 Iron deficiency anemia, unspecified; E66.01 Morbid (severe) obesity due to excess calories; E87.6 Hypokalemia; Z20.822 Contact with and (suspected) exposure to COVID-19; G89.29 Other chronic pain; I12.9 Hypertensive chronic kidney disease with stage 1 through stage 4 chronic kidney disease, or unspecified chronic kidney disease; J44.9 Chronic obstructive pulmonary disease, unspecified; I16.1 Hypertensive emergency; N18.30 Chronic kidney disease, stage 3 unspecified; N32.89 Other specified disorders of bladder; N32.0 Bladder-neck obstruction; N40.0 Benign prostatic hyperplasia without lower urinary tract symptoms; Z79.51 Long term (current) use of inhaled steroids; Z79.84 Long term (current) use of oral hypoglycemic drugs; Z79.899 Other long term (current) drug therapy; Z68.31 Body mass index [BMI] 31.0-31.9, adult; Z87.11 Personal history of peptic ulcer disease; Z87.442 Personal history of urinary calculi; I25.2 Old myocardial infarction
CPT/HCPCS: 36415; 71045; 74176; 80053; 81001; 82607; 82746; 83540; 83550; 83605; 83690; 84132; 84484; 85025; 87086; 93005; 94640; 96361; 96365; 96367; 96375; 96376; 99291; C9113; G0378; J0696; J1956; J3480; J3490

== ENCOUNTER 2021-10-06 11:25 | Inpatient (IN) | payer MEDICAID ==
[~2021-10-06] VITALS: Ht 172.7 cm; Wt 106.0 kg
[~2021-10-06 11:25] MED LIST changes: +DOCU100C10 PO; +FER325T PO; +HYDR1TAB97 PO; -LEVO-28 PO; -MET500T PO
[2021-10-06] MEDS ORDERED: MORPHINE SULFATE 4 MG/ML SYR/VIAL IV ONE (11:45)
[2021-10-06] MEDS ORDERED: SODIUM CHLORIDE 0.9% 500 ML IVB ONE (11:45)
[2021-10-06] MEDS ORDERED: ONDANSETRON HCL 4 MG/2 ML VIAL IV ONE (11:45)
[2021-10-06 13:35] LABS: Basophils # (auto) 0 10 ^3/uL (0-0.2); Eosinophils # (auto) 0 10 ^3/uL (0-0.8); Hemoglobin 7.7 g/dL (13.5-17.5); Lymphocytes # (auto) 0.4 10 ^3/uL (0.4-5.4); Monocytes # (auto) 0.4 10 ^3/uL (0-1.3); Neutrophils # (auto) 4.1 10 ^3/uL (1.6-8.6); Nucleated Red Blood Cells % 0.1 %; White Blood Cell 4.9 10^3/uL (4.4-10.8)
[2021-10-06 13:37] LABS: Basophils % (auto) 0.5 % (0.0-2.0); Hematocrit 24.3 % (41.0-53.0); Lymphocytes % (auto) 8.3 % (10.0-50.0); Mean Corpuscular Hemoglobin 20.9 pg (28.0-32.0); Mean Corpuscular Hgb Conc. 31.7 g/dL (32.0-36.0); Mean Corpuscular Volume 65.8 fL (80.0-100.0); Neutrophils % (auto) 83.2 % (37.0-80.0); Red Blood Cells 3.69 10^6/uL (4.5-5.90); Red Cell Distribution Width 18.7 % (11.8-14.3)
[2021-10-06 13:59] LABS: Albumin 2.8 g/dL (3.4-5.0); BUN/Creatinine Ratio 7.9; Calcium 8.4 mg/dL (8.5-10.1)
[2021-10-06 14:02] LABS: Bilirubin, Total 0.2 mg/dL (0.2-1.0); Total Protein 6.3 g/dL (6.4-8.2)
[2021-10-06 14:12] LABS: Potassium 2.5 mmol/L (3.5-5.1)
[2021-10-06] MEDS ORDERED: POTASSIUM CHL 20MEQ/100ML 100 ML IV ONE (14:30)
[2021-10-06] MEDS ORDERED: POTASSIUM CHL 20 Meq TABLET PO ONE ×2 (15:05→15:15)
[2021-10-06] MEDS ORDERED: HYDROcodone-ACET 5/325MG TAB PO PRN (20:15)
[2021-10-06 20:56] LABS: INR 1.12 (0.9-1.15)
[2021-10-06] MEDS: POTASSIUM CHL 20MEQ/100ML 100 ML IV SCH (23:00)
[2021-10-06] MEDS ORDERED: NITROGLYCERIN 0.4 MG SL TAB SL PRN (23:00)
[2021-10-06] MEDS ORDERED: ONDANSETRON HCL 4 MG/2 ML VIAL IV PRN (23:00)
[2021-10-06] MEDS ORDERED: MORPHINE SULFATE INJ 2 MG/ml SYRG IV PRN (23:00)
[2021-10-07] MEDS: PIPERACILLIN-TAZOB 2.25GM 50 ML IV SCH ×3 (10:07→18:11)
[2021-10-07 10:12] LABS: Basophils # (auto) 0.1 10 ^3/uL (0-0.2); Eosinophils # (auto) 0 10 ^3/uL (0-0.8); Hemoglobin 7.8 g/dL (13.5-17.5); Lymphocytes # (auto) 0.6 10 ^3/uL (0.4-5.4); Mean Corpuscular Volume 66.8 fL (80.0-100.0); Monocytes # (auto) 0.4 10 ^3/uL (0-1.3); Neutrophils # (auto) 4.6 10 ^3/uL (1.6-8.6)
[2021-10-07 10:13] LABS: Basophils % (auto) 2.1 % (0.0-2.0); Eosinophils % (auto) 0.2 % (0.0-7.0); Hematocrit 24.6 % (41.0-53.0); Mean Corpuscular Hemoglobin 21.2 pg (28.0-32.0); Mean Corpuscular Hgb Conc. 31.7 g/dL (32.0-36.0); Monocytes % (auto) 6.9 % (0.0-12.0); Neutrophils % (auto) 79.8 % (37.0-80.0); Red Blood Cells 3.67 10^6/uL (4.5-5.90); Red Cell Distribution Width 18.6 % (11.8-14.3); White Blood Cell 5.8 10^3/uL (4.4-10.8)
[2021-10-07 10:16] LABS: Urine Bacteria NONE SEEN /hpf (None Seen); Urine Blood 2+ /uL (Negative); Urine Specific Gravity 1.012 (1.001-1.035); Urine WBC 23 /hpf (0 - 3)
[2021-10-07 10:28] LABS: Albumin 2.9 g/dL (3.4-5.0); BUN/Creatinine Ratio 6.4; Calcium 7.9 mg/dL (8.5-10.1)
[2021-10-07 10:36] LABS: Bilirubin, Total 0.2 mg/dL (0.2-1.0); Total Protein 6.4 g/dL (6.4-8.2)
[2021-10-07] MEDS ORDERED: hydrALAZINE HCL 20 MG/ML VL IV PRN (10:45)
[2021-10-07] MEDS ORDERED: hydrALAZINE HCL 20 MG/ML VL IV ONE (10:45)
[2021-10-07 10:50] VITALS: BP 117/91
[2021-10-07 10:51] LABS: Potassium 2.9 mmol/L (3.5-5.1)
[2021-10-07] MEDS: POTASSIUM CHL 20MEQ/100ML 100 ML IV SCH ×3 (10:54→16:35)
[2021-10-07] MEDS ORDERED: methylPREDNISolone SOD SUCC 125 MG/2 ML VL IV ONE (11:00)
[2021-10-07] MEDS: ALBUTEROL SULF 2.5 MG/0.5ML(0.5%) NEB SOLN NEB SCH ×2 (11:03→19:11)
[2021-10-07] MEDS: IPRATROPIUM BROM 0.5 MG/2.5ML INH SOL NEB SCH ×2 (11:04→19:11)
[2021-10-07] MEDS: METOPROLOL TARTRATE 25 MG TAB PO SCH ×2 (11:06→21:19)
[2021-10-07] MEDS: LISINOPRIL 20 MG TAB PO SCH (11:06)
[2021-10-07 11:43] LABS: Amphetamine Screen, Urine NEGATIVE (NEGATIVE); Barbiturate Scree,Urine NEGATIVE (NEGATIVE); Benzodiazephine Screen, Urine NEGATIVE (NEGATIVE); Cocaine Screen, Urine NEGATIVE (NEGATIVE)
[2021-10-07 11:46] LABS: Alcohol, Urine < 3.0 mg/dL (0-10); Cannabinoid Screen, Urine NEGATIVE (NEGATIVE); Opiate Scree,Urine NEGATIVE (NEGATIVE); Phencyclidine Screen, Urine NEGATIVE (NEGATIVE)
[2021-10-07] MEDS ORDERED: MORPHINE SULFATE 4 MG/ML SYR/VIAL ONE (14:28)
[2021-10-07] MEDS: MORPHINE SULFATE INJ 2 MG/ml SYRG IV PRN ×2 (14:38→20:25)
[2021-10-07] MEDS: POTASSIUM CHL 20 Meq TABLET PO SCH ×3 (14:56→21:19)
[2021-10-07 16:52] VITALS: BP 146/74
[2021-10-07 17:00] VITALS: BP 171/76
[2021-10-07 17:15] VITALS: BP 154/74
[2021-10-07 18:49] LABS: BUN/Creatinine Ratio 7.4; Calcium 8.1 mg/dL (8.5-10.1); Potassium 4.1 mmol/L (3.5-5.1)
[2021-10-07 20:00] VITALS: BP 170/88
[2021-10-07 22:00] VITALS: BP 170/88
[2021-10-08] MEDS: PIPERACILLIN-TAZOB 2.25GM 50 ML IV SCH ×4 (01:03→18:30)
[2021-10-08] MEDS: MORPHINE SULFATE INJ 2 MG/ml SYRG IV PRN ×3 (01:42→11:13)
[2021-10-08 05:00] VITALS: BP 163/101
[2021-10-08 06:25] LABS: Basophils # (auto) 0 10 ^3/uL (0-0.2); Eosinophils # (auto) 0 10 ^3/uL (0-0.8); Hematocrit 24.2 % (41.0-53.0); Hemoglobin 7.5 g/dL (13.5-17.5); Lymphocytes # (auto) 0.7 10 ^3/uL (0.4-5.4); Mean Corpuscular Hemoglobin 21.1 pg (28.0-32.0); Monocytes # (auto) 0.6 10 ^3/uL (0-1.3); Nucleated Red Blood Cells % 0.1 %
[2021-10-08 06:26] LABS: Calcium 7.7 mg/dL (8.5-10.1); Potassium 4.5 mmol/L (3.5-5.1)
[2021-10-08 06:27] LABS: Basophils % (auto) 0.2 % (0.0-2.0); Lymphocytes % (auto) 9.5 % (10.0-50.0); Mean Corpuscular Hgb Conc. 30.9 g/dL (32.0-36.0); Monocytes % (auto) 8.7 % (0.0-12.0); Neutrophils # (auto) 5.6 10 ^3/uL (1.6-8.6); Neutrophils % (auto) 81.6 % (37.0-80.0); Red Blood Cells 3.55 10^6/uL (4.5-5.90); Red Cell Distribution Width 18.8 % (11.8-14.3); White Blood Cell 6.9 10^3/uL (4.4-10.8)
[2021-10-08 06:28] LABS: BUN/Creatinine Ratio 10.2
[2021-10-08] MEDS: ALBUTEROL SULF 2.5 MG/0.5ML(0.5%) NEB SOLN NEB SCH ×3 (06:38→20:19)
[2021-10-08] MEDS: IPRATROPIUM BROM 0.5 MG/2.5ML INH SOL NEB SCH ×3 (06:38→20:19)
[2021-10-08 06:56] LABS: Mean Corpuscular Volume 68.2 fL (80.0-100.0)
[2021-10-08] MEDS: POTASSIUM CHL 20 Meq TABLET PO SCH ×5 (07:43→21:35)
[2021-10-08] MEDS: POTASSIUM CHL 20MEQ/100ML 100 ML IV SCH ×2 (07:43→07:48)
[2021-10-08 08:00] VITALS: BP 163/98
[2021-10-08 08:30] VITALS: BP 170/86
[2021-10-08] MEDS: LISINOPRIL 20 MG TAB PO SCH (10:11)
[2021-10-08] MEDS: METOPROLOL TARTRATE 25 MG TAB PO SCH ×2 (10:11→21:35)
[2021-10-08] MEDS ORDERED: amLODIPine BESYLATE 5 MG TAB PO ONE (10:45)
[2021-10-08] MEDS: PANTOPRAZOLE 40 MG TAB PO SCH (11:18)
[2021-10-08 12:00] VITALS: BP 159/93
[2021-10-08] MEDS ORDERED: MORPHINE SULFATE INJ 2 MG/ml SYRG IV ONE (12:15)
[2021-10-08] MEDS ORDERED: BUPIVACAINE W/ EPINEPH 0.25% INJ 50ML MDV ONE (13:39)
[2021-10-08] MEDS ORDERED: fentaNYL CITRATE 100 MCG/2 ML VL ONE (13:47)
[2021-10-08] MEDS ORDERED: MIDAZOLAM HCL 2MG/2ML 2ml VIAL (1mg/ml) ONE (13:48)
[2021-10-08] MEDS ORDERED: ROCURONIUM 10MG/ML 10ML VIAL IV ONE (13:48)
[2021-10-08] MEDS: LIDOCAINE 1%-Mpf/Epinephrine 1:200,000 ONE ×2 (14:35→15:30)
[2021-10-08] MEDS: BUPIVACAINE 0.25% INJ 50ML VIAL ONE ×2 (14:36→15:30)
[2021-10-08] MEDS ORDERED: ONDANSETRON HCL 4 MG/2 ML VIAL ONE (15:37)
[2021-10-08] MEDS ORDERED: PROPOFOL 10 MG/ML 20 ML IV ONE (15:38)
[2021-10-08] MEDS ORDERED: NEOSTIGMINE 1 MG/ML INJ (10mg/10ML VIAL) ONE (15:52)
[2021-10-08] MEDS ORDERED: GLYCOPYRROLATE 0.2 MG/ML 1ML VIAL ONE (15:52)
[2021-10-08] MEDS ORDERED: HYDROmorphone HCL 2 MG/ML VL/or syr IV PRN (16:15)
[2021-10-08] MEDS ORDERED: ONDANSETRON HCL 4 MG/2 ML VIAL IV PRN (16:15)
[2021-10-08] MEDS ORDERED: HYDROmorphone HCL 2 MG/ML VL/or syr ONE (16:20)
[2021-10-08] MEDS: HYDROmorphone HCL 2 MG/ML VL/or syr IV PRN ×5 (16:21→20:32)
[2021-10-08 17:00] VITALS: BP 137/60
[2021-10-08 22:00] VITALS: BP 127/72
[2021-10-09] MEDS: PIPERACILLIN-TAZOB 2.25GM 50 ML IV SCH ×5 (00:17→23:36)
[2021-10-09] MEDS: HYDROmorphone HCL 2 MG/ML VL/or syr IV PRN ×4 (00:19→21:10)
[2021-10-09] MEDS ORDERED: diphenhdrAMINE HCL 25 MG CAP PO PRN (01:30)
[2021-10-09] MEDS: POTASSIUM CHL 20 Meq TABLET PO SCH ×3 (02:00→07:51)
[2021-10-09] MEDS: ALBUTEROL SULF 2.5 MG/0.5ML(0.5%) NEB SOLN NEB PRN (03:39)
[2021-10-09] MEDS: IPRATROPIUM BROM 0.5 MG/2.5ML INH SOL NEB PRN (03:40)
[2021-10-09 05:00] VITALS: BP 115/62
[2021-10-09 05:10] LABS: Basophils # (auto) 0 10 ^3/uL (0-0.2); Basophils % (auto) 0.6 % (0.0-2.0); Eosinophils # (auto) 0 10 ^3/uL (0-0.8); Eosinophils % (auto) 0.6 % (0.0-7.0); Hematocrit 24.9 % (41.0-53.0); Hemoglobin 7.6 g/dL (13.5-17.5); Lymphocytes # (auto) 0.8 10 ^3/uL (0.4-5.4); Lymphocytes % (auto) 10.5 % (10.0-50.0); Mean Corpuscular Hemoglobin 21.2 pg (28.0-32.0); Mean Corpuscular Hgb Conc. 30.5 g/dL (32.0-36.0); Mean Corpuscular Volume 69.6 fL (80.0-100.0); Monocytes # (auto) 0.6 10 ^3/uL (0-1.3); Monocytes % (auto) 8.9 % (0.0-12.0); Neutrophils # (auto) 5.8 10 ^3/uL (1.6-8.6); Neutrophils % (auto) 79.4 % (37.0-80.0); Nucleated Red Blood Cells % 0.1 %; Red Blood Cells 3.58 10^6/uL (4.5-5.90); White Blood Cell 7.3 10^3/uL (4.4-10.8)
[2021-10-09 05:28] LABS: Calcium 7.9 mg/dL (8.5-10.1); Potassium 4.4 mmol/L (3.5-5.1)
[2021-10-09] MEDS: ALBUTEROL SULF 2.5 MG/0.5ML(0.5%) NEB SOLN NEB SCH ×3 (06:14→19:16)
[2021-10-09] MEDS: IPRATROPIUM BROM 0.5 MG/2.5ML INH SOL NEB SCH ×3 (06:14→19:16)
[2021-10-09 09:30] VITALS: BP 181/97
[2021-10-09] MEDS: METOPROLOL TARTRATE 25 MG TAB PO SCH ×2 (09:46→21:09)
[2021-10-09] MEDS: amLODIPine BESYLATE 5 MG TAB PO SCH (09:47)
[2021-10-09] MEDS: PANTOPRAZOLE 40 MG TAB PO SCH (09:47)
[2021-10-09] MEDS: LISINOPRIL 20 MG TAB PO SCH (09:48)
[2021-10-09 16:31] VITALS: BP 151/96
[2021-10-09] MEDS: HYDROcodone-ACET 5/325MG TAB PO PRN (19:24)
[2021-10-09 21:59] VITALS: BP 133/67
[2021-10-09] MEDS: ACETAMINOPHEN 325 MG TAB PO PRN (23:27)
[2021-10-10] MEDS: HYDROmorphone HCL 2 MG/ML VL/or syr IV PRN ×2 (01:26→05:48)
[2021-10-10] MEDS: ALBUTEROL SULF 2.5 MG/0.5ML(0.5%) NEB SOLN NEB SCH ×2 (04:55→12:23)
[2021-10-10] MEDS: IPRATROPIUM BROM 0.5 MG/2.5ML INH SOL NEB SCH ×2 (04:55→12:23)
[2021-10-10 05:13] VITALS: BP 145/77
[2021-10-10 05:33] LABS: Basophils # (auto) 0 10 ^3/uL (0-0.2); Eosinophils # (auto) 0 10 ^3/uL (0-0.8); Monocytes # (auto) 0.6 10 ^3/uL (0-1.3); Nucleated Red Blood Cells % 0.1 %
[2021-10-10 05:36] LABS: Basophils % (auto) 0.4 % (0.0-2.0); Eosinophils % (auto) 0.5 % (0.0-7.0); Hematocrit 23.8 % (41.0-53.0); Hemoglobin 7.5 g/dL (13.5-17.5); Lymphocytes # (auto) 0.7 10 ^3/uL (0.4-5.4); Lymphocytes % (auto) 10.5 % (10.0-50.0); Mean Corpuscular Hemoglobin 21.9 pg (28.0-32.0); Mean Corpuscular Hgb Conc. 31.6 g/dL (32.0-36.0); Mean Corpuscular Volume 69.2 fL (80.0-100.0); Monocytes % (auto) 8.6 % (0.0-12.0); Neutrophils # (auto) 5.4 10 ^3/uL (1.6-8.6); Red Blood Cells 3.44 10^6/uL (4.5-5.90); Red Cell Distribution Width 19.3 % (11.8-14.3); White Blood Cell 6.8 10^3/uL (4.4-10.8)
[2021-10-10] MEDS: PIPERACILLIN-TAZOB 2.25GM 50 ML IV SCH ×2 (05:47→11:48)
[2021-10-10 06:10] LABS: BUN/Creatinine Ratio 12.5; Calcium 8.5 mg/dL (8.5-10.1)
[2021-10-10] MEDS: ACETAMINOPHEN 325 MG TAB PO PRN (08:05)
[2021-10-10 09:00] VITALS: BP 173/86
[2021-10-10] MEDS: IPRATROPIUM BROM 0.5 MG/2.5ML INH SOL NEB PRN (09:00)
[2021-10-10] MEDS: ALBUTEROL SULF 2.5 MG/0.5ML(0.5%) NEB SOLN NEB PRN (09:00)
[2021-10-10] MEDS: METOPROLOL TARTRATE 25 MG TAB PO SCH (09:47)
[2021-10-10] MEDS: amLODIPine BESYLATE 5 MG TAB PO SCH (09:47)
[2021-10-10] MEDS: PANTOPRAZOLE 40 MG TAB PO SCH (09:47)
[2021-10-10] MEDS: HYDROcodone-ACET 5/325MG TAB PO PRN (10:27)
[2021-10-10] MEDS ORDERED: DOCU-94 PO (11:05)
[2021-10-10] MEDS ORDERED: AMOX-277 PO (11:05)
[2021-10-10 11:40] VITALS: BP 173/86
== END 2021-10-10 16:24 | disposition home or self-care (01) | DRG 263 ==
LOC: ER 11:25 → TELE 22:47 → TELE-WESTW 10-07 16:16
PROVIDERS: ADMIT Internal Medicine; ATTEND Internal Medicine
PROC: 0DNU3ZZ Release Omentum, Percutaneous Approach (ICD-10-PCS; 2021-10-08)
PROC: 0FT44ZZ Resection of Gallbladder, Percutaneous Endoscopic Approach (ICD-10-PCS; principal; 2021-10-08 14:15)
DX: K80.20 Calculus of gallbladder without cholecystitis without obstruction (principal); N17.0 Acute kidney failure with tubular necrosis; D63.8 Anemia in other chronic diseases classified elsewhere; E11.22 Type 2 diabetes mellitus with diabetic chronic kidney disease; Z68.31 Body mass index [BMI] 31.0-31.9, adult; E66.01 Morbid (severe) obesity due to excess calories; E87.6 Hypokalemia; N40.0 Benign prostatic hyperplasia without lower urinary tract symptoms; K66.0 Peritoneal adhesions (postprocedural) (postinfection); N18.30 Chronic kidney disease, stage 3 unspecified; I12.9 Hypertensive chronic kidney disease with stage 1 through stage 4 chronic kidney disease, or unspecified chronic kidney disease; G89.29 Other chronic pain; Z20.822 Contact with and (suspected) exposure to COVID-19; J45.909 Unspecified asthma, uncomplicated; K82.8 Other specified diseases of gallbladder; Z79.4 Long term (current) use of insulin; Z87.11 Personal history of peptic ulcer disease; Z87.440 Personal history of urinary (tract) infections; Z87.442 Personal history of urinary calculi; Z90.49 Acquired absence of other specified parts of digestive tract
CPT/HCPCS: 36415; 71045; 76705; 78226; 80048; 80053; 80307; 81001; 82150; 83690; 83735; 84132; 85025; 85610; 86850; 86900; 86901; 93005; 94640; 96361; 96365; 96375; G0378; J2250; J2405; J2543; J2704; J3480; J3490

== ENCOUNTER 2021-10-17 03:05 | Emergency (ER) | payer MEDICAID ==
[~2021-10-17] VITALS: Ht 177.8 cm; Wt 91.2 kg
[~2021-10-17 03:05] MED LIST changes: +AMOX-277 PO; +DOCU-94 PO
[2021-10-17] MEDS ORDERED: MORPHINE SULFATE 4 MG/ML SYR/VIAL IV ONE (04:00)
[2021-10-17 04:27] LABS: Basophils # (auto) 0 10 ^3/uL (0-0.2); Basophils % (auto) 0.7 % (0.0-2.0); Eosinophils # (auto) 0 10 ^3/uL (0-0.8); Eosinophils % (auto) 0.6 % (0.0-7.0); Hematocrit 24.4 % (41.0-53.0); Hemoglobin 7.8 g/dL (13.5-17.5); Lymphocytes # (auto) 0.8 10 ^3/uL (0.4-5.4); Lymphocytes % (auto) 14.9 % (10.0-50.0); Mean Corpuscular Hemoglobin 20.8 pg (28.0-32.0); Mean Corpuscular Volume 65.2 fL (80.0-100.0); Monocytes # (auto) 0.2 10 ^3/uL (0-1.3); Monocytes % (auto) 4.4 % (0.0-12.0); Neutrophils % (auto) 79.4 % (37.0-80.0); Red Blood Cells 3.74 10^6/uL (4.5-5.90); Red Cell Distribution Width 19.5 % (11.8-14.3); White Blood Cell 5.1 10^3/uL (4.4-10.8)
[2021-10-17 04:47] LABS: BUN/Creatinine Ratio 9.1; Potassium 3.2 mmol/L (3.5-5.1)
[2021-10-17] MEDS ORDERED: HYDROmorphone HCL 2 MG/ML VL/or syr IV ONE (06:30)
[2021-10-17] MEDS ORDERED: SODIUM CHLORIDE 0.9% 500 ML IVB ONE (06:30)
[2021-10-17] MEDS ORDERED: ONDANSETRON HCL 4 MG/2 ML VIAL IV ONE (06:30)
[2021-10-17] MEDS ORDERED: POTASSIUM CHL 20MEQ/100ML 100 ML IV ONE (07:00)
[2021-10-17 10:57] LABS: Albumin 2.4 g/dL (3.4-5.0); Calcium 7.5 mg/dL (8.5-10.1); Potassium 3.5 mmol/L (3.5-5.1)
[2021-10-17 11:00] VITALS: BP 156/77
[2021-10-17 11:00] LABS: Bilirubin, Total 0.1 mg/dL (0.2-1.0); Total Protein 6.3 g/dL (6.4-8.2)
[2021-10-17 11:03] LABS: INR 1.08 (0.9-1.15); Partial Thromboplastin Time 27.2 sec (23.6-33.0)
[2021-10-17] MEDS ORDERED: AMOX-277 PO (12:28)
== END 2021-10-17 12:40 | disposition home or self-care (01) ==
LOC: ER 03:05
DX: D64.9 Anemia, unspecified (principal); E87.6 Hypokalemia; N13.30 Unspecified hydronephrosis; J45.909 Unspecified asthma, uncomplicated; E78.5 Hyperlipidemia, unspecified; Z90.49 Acquired absence of other specified parts of digestive tract; Z20.822 Contact with and (suspected) exposure to COVID-19; Z87.442 Personal history of urinary calculi
CPT/HCPCS: 36415; 74176; 80048; 80053; 82150; 83690; 85025; 85610; 85730; 87426; 93005; 96361; 96365; 96366; 96375; 99285; J1170; J2270; J2405; J3480; J7040

== ENCOUNTER 2021-11-03 13:02 | Inpatient (IN) | payer MEDICAID ==
[~2021-11-03] VITALS: Ht 177.8 cm; Wt 85.5 kg
[2021-11-03] MEDS ORDERED: IOHEXOL 300 MG/ML 100ML BOTTLE IJ ONE (13:13)
[2021-11-03] MEDS ORDERED: HYDROmorphone HCL 2 MG/ML VL/or syr IV ONE ×2 (13:15→17:30)
[2021-11-03] MEDS ORDERED: LORazepam 2MG/ML-1ML VIAL IV ONE ×2 (13:15→17:30)
[2021-11-03] MEDS ORDERED: ONDANSETRON HCL 4 MG/2 ML VIAL IV ONE ×2 (13:15→17:30)
[2021-11-03] MEDS ORDERED: SODIUM CHLORIDE 0.9% 1,000 ML IVB ONE (13:15)
[2021-11-03] MEDS ORDERED: PANTOPRAZOLE 40 MG/10 ML VIAL INJ IV ONE (13:15)
[2021-11-03 13:49] LABS: Basophils # (auto) 0 10 ^3/uL (0-0.2); Lymphocytes # (auto) 0.8 10 ^3/uL (0.4-5.4); Mean Corpuscular Hgb Conc. 29.7 g/dL (32.0-36.0); Neutrophils # (auto) 4.7 10 ^3/uL (1.6-8.6)
[2021-11-03 13:50] LABS: Basophils % (auto) 0.7 % (0.0-2.0); Eosinophils # (auto) 0 10 ^3/uL (0-0.8); Eosinophils % (auto) 0.8 % (0.0-7.0); Hematocrit 25.9 % (41.0-53.0); Hemoglobin 7.7 g/dL (13.5-17.5); Lymphocytes % (auto) 12.9 % (10.0-50.0); Mean Corpuscular Hemoglobin 20.1 pg (28.0-32.0); Mean Corpuscular Volume 67.4 fL (80.0-100.0); Monocytes # (auto) 0.4 10 ^3/uL (0-1.3); Monocytes % (auto) 7.4 % (0.0-12.0); Neutrophils % (auto) 78.2 % (37.0-80.0); Nucleated Red Blood Cells % 0.1 %; Red Blood Cells 3.84 10^6/uL (4.5-5.90)
[2021-11-03 13:52] LABS: Red Cell Distribution Width 20.8 % (11.8-14.3)
[2021-11-03 14:22] LABS: Albumin 2.4 g/dL (3.4-5.0); Calcium 7.7 mg/dL (8.5-10.1); Potassium 3.1 mmol/L (3.5-5.1)
[2021-11-03 14:25] LABS: BUN/Creatinine Ratio 6.1; Bilirubin, Total 0.2 mg/dL (0.2-1.0); Total Protein 6.3 g/dL (6.4-8.2)
[2021-11-03] MEDS ORDERED: DEXTROSE 50% SYRINGE 50 ML IV ONE (16:11)
[2021-11-03] MEDS ORDERED: DEXTROSE (50%) 50ML SYRG IV ONE (16:15)
[2021-11-03 18:44] LABS: Urine Bacteria NONE SEEN /hpf (None Seen); Urine Blood 1+ /uL (Negative); Urine Specific Gravity 1.009 (1.001-1.035); Urine WBC 6 /hpf (0 - 3)
[2021-11-04] MEDS ORDERED: DEXTROSE 50% SYRINGE 50 ML IV ONE (02:12)
[2021-11-04] MEDS ORDERED: NITROGLYCERIN 0.4 MG SL TAB SL PRN (02:45)
[2021-11-04] MEDS ORDERED: DEXTROSE (50%) 50ML SYRG IV ONE (02:45)
[2021-11-04] MEDS ORDERED: ONDANSETRON HCL 4 MG/2 ML VIAL IV PRN (02:45)
[2021-11-04] MEDS ORDERED: MORPHINE SULFATE INJ 2 MG/ml SYRG IV PRN (02:45)
[2021-11-04] MEDS: MORPHINE SULFATE INJ 2 MG/ml SYRG IV PRN ×5 (03:04→23:59)
[2021-11-04] MEDS: D5W 5% 1,000 ML IV SCH ×2 (03:15→16:22)
[2021-11-04 07:15] LABS: BUN/Creatinine Ratio 6.4; Calcium 7.4 mg/dL (8.5-10.1); Potassium 3.5 mmol/L (3.5-5.1)
[2021-11-04] MEDS: PANTOPRAZOLE 40 MG/10 ML VIAL INJ IV SCH (07:42)
[2021-11-04] MEDS: ENOXAPARIN SOD 40 MG/0.4 ML SYRINGE SC SCH (07:43)
[2021-11-04] MEDS ORDERED: SUCR1TAB PO (13:22)
[2021-11-04 21:37] VITALS: BP 156/80
[2021-11-05 04:25] VITALS: BP 151/77
[2021-11-05] MEDS: MORPHINE SULFATE INJ 2 MG/ml SYRG IV PRN ×5 (04:40→21:37)
[2021-11-05 04:59] LABS: Basophils # (auto) 0 10 ^3/uL (0-0.2); Eosinophils # (auto) 0.1 10 ^3/uL (0-0.8); Lymphocytes # (auto) 0.5 10 ^3/uL (0.4-5.4); Monocytes # (auto) 0.4 10 ^3/uL (0-1.3)
[2021-11-05 05:01] LABS: Basophils % (auto) 0.8 % (0.0-2.0); Eosinophils % (auto) 2.4 % (0.0-7.0); Hematocrit 23.6 % (41.0-53.0); Hemoglobin 7.2 g/dL (13.5-17.5); Lymphocytes % (auto) 13.1 % (10.0-50.0); Mean Corpuscular Hemoglobin 20.8 pg (28.0-32.0); Mean Corpuscular Hgb Conc. 30.5 g/dL (32.0-36.0); Mean Corpuscular Volume 68.3 fL (80.0-100.0); Monocytes % (auto) 10.6 % (0.0-12.0); Neutrophils # (auto) 2.9 10 ^3/uL (1.6-8.6); Neutrophils % (auto) 73.1 % (37.0-80.0); Red Blood Cells 3.46 10^6/uL (4.5-5.90)
[2021-11-05 05:04] LABS: Red Cell Distribution Width 20.6 % (11.8-14.3)
[2021-11-05] MEDS: D5W 5% 1,000 ML IV SCH ×2 (05:16→19:26)
[2021-11-05] MEDS: PANTOPRAZOLE 40 MG/10 ML VIAL INJ IV SCH (08:52)
[2021-11-05] MEDS: ENOXAPARIN SOD 40 MG/0.4 ML SYRINGE SC SCH (08:53)
[2021-11-05 09:00] VITALS: BP 144/72
[2021-11-05] MEDS ORDERED: DEXTROSE (50%) 50ML SYRG IV PRN (11:00)
[2021-11-05] MEDS: InsuLIN REG 1unit/0.01ml Soln (100units/ml) SC SCH ×3 (11:45→21:48)
[2021-11-05] MEDS: ACCU-CHEK COMFORT CURVE STRIP VI SCH ×3 (11:46→21:36)
[2021-11-05 13:00] VITALS: BP 159/89
[2021-11-05] MEDS: ALBUTEROL SULF 2.5 MG/0.5ML(0.5%) NEB SOLN NEB SCH ×3 (14:27→21:54)
[2021-11-05] MEDS: IPRATROPIUM BROM 0.5 MG/2.5ML INH SOL NEB SCH ×3 (14:27→21:54)
[2021-11-05 15:36] VITALS: BP 159/89
[2021-11-05 17:00] VITALS: BP 145/71
[2021-11-05 22:00] VITALS: BP 163/82
[2021-11-06] MEDS: MORPHINE SULFATE INJ 2 MG/ml SYRG IV PRN ×3 (01:56→13:09)
[2021-11-06 05:00] VITALS: BP 147/79
[2021-11-06 05:37] LABS: Basophils # (auto) 0 10 ^3/uL (0-0.2); Basophils % (auto) 1.1 % (0.0-2.0); Eosinophils # (auto) 0.1 10 ^3/uL (0-0.8); Eosinophils % (auto) 1.7 % (0.0-7.0); Hematocrit 23.6 % (41.0-53.0); Hemoglobin 7.2 g/dL (13.5-17.5); Lymphocytes # (auto) 0.5 10 ^3/uL (0.4-5.4); Lymphocytes % (auto) 14.8 % (10.0-50.0); Mean Corpuscular Hemoglobin 20.9 pg (28.0-32.0); Mean Corpuscular Hgb Conc. 30.4 g/dL (32.0-36.0); Mean Corpuscular Volume 68.8 fL (80.0-100.0); Monocytes # (auto) 0.4 10 ^3/uL (0-1.3); Monocytes % (auto) 11.3 % (0.0-12.0); Neutrophils # (auto) 2.2 10 ^3/uL (1.6-8.6); Neutrophils % (auto) 71.1 % (37.0-80.0); Nucleated Red Blood Cells % 0.2 %; Red Blood Cells 3.42 10^6/uL (4.5-5.90); Red Cell Distribution Width 20.8 % (11.8-14.3); White Blood Cell 3.1 10^3/uL (4.4-10.8)
[2021-11-06] MEDS: ACCU-CHEK COMFORT CURVE STRIP VI SCH ×2 (05:42→11:29)
[2021-11-06 05:48] LABS: Potassium 4.3 mmol/L (3.5-5.1)
[2021-11-06 05:52] LABS: BUN/Creatinine Ratio 7.8; Magnesium 2.3 mg/dL (1.6-2.6)
[2021-11-06] MEDS: InsuLIN REG 1unit/0.01ml Soln (100units/ml) SC SCH ×2 (05:58→11:30)
[2021-11-06] MEDS: ALBUTEROL SULF 2.5 MG/0.5ML(0.5%) NEB SOLN NEB SCH ×3 (06:52→14:57)
[2021-11-06] MEDS: IPRATROPIUM BROM 0.5 MG/2.5ML INH SOL NEB SCH ×3 (06:52→14:57)
[2021-11-06] MEDS: D5W 5% 1,000 ML IV SCH (09:00)
[2021-11-06] MEDS: ENOXAPARIN SOD 40 MG/0.4 ML SYRINGE SC SCH (09:00)
[2021-11-06] MEDS: PANTOPRAZOLE 40 MG/10 ML VIAL INJ IV SCH (09:01)
[2021-11-06 09:09] VITALS: BP 158/82
[2021-11-06 12:23] VITALS: BP 156/75
[2021-11-06 15:36] VITALS: BP 158/90
== END 2021-11-06 17:10 | disposition home or self-care (01) | DRG 420 ==
LOC: EDBD 13:02 → ER 13:02 → TELE 11-04 02:38 → TELE-WESTW 11-04 10:40
PROVIDERS: ADMIT Hospitalist; ATTEND Hospitalist
DX: E11.649 Type 2 diabetes mellitus with hypoglycemia without coma (principal); N17.0 Acute kidney failure with tubular necrosis; E44.1 Mild protein-calorie malnutrition; R10.9 Unspecified abdominal pain; G89.4 Chronic pain syndrome; E83.51 Hypocalcemia; N32.89 Other specified disorders of bladder; D64.9 Anemia, unspecified; F10.20 Alcohol dependence, uncomplicated; Z20.822 Contact with and (suspected) exposure to COVID-19; J45.909 Unspecified asthma, uncomplicated; N40.0 Benign prostatic hyperplasia without lower urinary tract symptoms; I12.9 Hypertensive chronic kidney disease with stage 1 through stage 4 chronic kidney disease, or unspecified chronic kidney disease; N18.9 Chronic kidney disease, unspecified; K59.00 Constipation, unspecified; Z83.3 Family history of diabetes mellitus; Z90.49 Acquired absence of other specified parts of digestive tract; Z79.84 Long term (current) use of oral hypoglycemic drugs; Z79.4 Long term (current) use of insulin; Z68.25 Body mass index [BMI] 25.0-25.9, adult
CPT/HCPCS: 36415; 74177; 80048; 80053; 81001; 82150; 82962; 83690; 83735; 85025; 86850; 86900; 86901; 94640; 96361; 96372; 96374; 96375; 96376; C9113; G0378; J1815; J2405

== ENCOUNTER 2021-12-02 09:10 | Emergency (ER) | payer MEDICAID ==
[~2021-12-02 09:10] MED LIST changes: +SUCR1TAB PO
== END 2021-12-02 09:28 | disposition left against medical advice (07) ==
LOC: ER 09:10
DX: R10.9 Unspecified abdominal pain (principal); Z53.21 Procedure and treatment not carried out due to patient leaving prior to being seen by health care provider

== ENCOUNTER 2021-12-04 04:26 | Emergency (ER) | payer MEDICAID ==
[~2021-12-04] VITALS: Ht 180.3 cm; Wt 100.0 kg
== END 2021-12-04 14:13 ==
LOC: EDUNIT# 04:26 → EDBD 04:26 → ER 04:26
DX: I46.9 Cardiac arrest, cause unspecified (principal); R09.2 Respiratory arrest; I10 Essential (primary) hypertension; E11.9 Type 2 diabetes mellitus without complications; E78.5 Hyperlipidemia, unspecified; J45.909 Unspecified asthma, uncomplicated; Z79.82 Long term (current) use of aspirin; Z79.4 Long term (current) use of insulin; Z79.899 Other long term (current) drug therapy
CPT/HCPCS: 31500; 92950